=== PATIENT | male | born 1980 | race Caucasian/White ===

== ENCOUNTER 2018-06-04 14:16 | Outpatient (REF) | payer MEDICARE, MEDICAID, SELFPAY ==
[2018-06-04 21:42] LABS: ALT 43 U/L (12-78); AST 31 U/L (15-37); Albumin 3.9 g/dL (3.4-5.0); Alkaline Phosphatase 62 U/L (46-116); Anion Gap 9.5 mmol/L (3-11); BUN 12 mg/dL (7-18); Bilirubin, Total 0.4 mg/dL (0.2-1.0); CO2 33.5 mmol/L (21.0-32.0); CREATININE 1.09 mg/dL (0.70-1.30); Calcium 9.2 mg/dL (8.5-10.1); Chloride 98 mmol/L (98-107); Glucose 133 mg/dL (70-100); Potassium 3.6 mmol/L (3.5-5.1); Sodium 141 mmol/L (136-145); Total Protein 7.5 g/dL (6.4-8.2)
[2018-06-04 22:48] LABS: COMMENT (LAB VIEW ONLY) 30.57 mg/dL; Microalb ug/mg Crea 602.2 ug/mg Cr
== END 2018-06-04 14:36 ==
LOC: NCHCN 14:16
PROVIDERS: PCP Nurse Practitioner Family; Visit Provider Nurse Practitioner Family
DX: I10 Essential (primary) hypertension (principal); E11.9 Type 2 diabetes mellitus without complications
CPT/HCPCS: 80053; 82043; 82570

== ENCOUNTER 2018-11-16 12:48 | Outpatient (REF) | payer MEDICARE, MEDICAID, SELFPAY ==
[2018-11-16 22:40] LABS: Cholesterol 67 mg/dL (50-200); HDL Cholesterol 26 mg/dL (40-60); LDL CHOLESTEROL 18 mg/dL (<100); Triglyceride 236 mg/dL (30-150)
== END 2018-11-16 13:08 ==
LOC: NCHCN 12:48
PROVIDERS: PCP Nurse Practitioner Family; Visit Provider Registered Nurse
DX: E66.9 Obesity, unspecified (principal)
CPT/HCPCS: 80061; 83721

== ENCOUNTER 2019-02-17 15:27 | Outpatient (REF) | payer MEDICARE, MEDICAID, SELFPAY ==
[2019-02-17 21:26] LABS: HCT 41.9 % (40.0-50.0); HGB 13.8 g/dL (13.5-17.5)
== END 2019-02-17 15:47 ==
LOC: NCHCN 15:27
PROVIDERS: PCP Nurse Practitioner Family; Visit Provider Registered Nurse
DX: E11.9 Type 2 diabetes mellitus without complications (principal); D64.9 Anemia, unspecified
CPT/HCPCS: 83036; 85014; 85018

== ENCOUNTER 2019-08-18 15:16 | Outpatient (REF) | payer MEDICARE, MEDICAID, SELFPAY ==
[2019-08-18 21:46] LABS: ALT 45 U/L (16-63); AST 29 U/L (15-37); Albumin 3.8 g/dL (3.4-5.0); Alkaline Phosphatase 60 U/L (46-116); Anion Gap 8.6 mmol/L (3-11); BUN 13 mg/dL (7-18); Bilirubin, Total 0.4 mg/dL (0.2-1.0); CO2 33.4 mmol/L (21.0-32.0); CREATININE 1.22 mg/dL (0.70-1.30); Calcium 9.1 mg/dL (8.5-10.1); Chloride 100 mmol/L (98-107); Glucose 142 mg/dL (74-106); Potassium 3.3 mmol/L (3.5-5.1); Sodium 142 mmol/L (136-145); Total Protein 7.2 g/dL (6.4-8.2)
== END 2019-08-18 15:36 ==
LOC: NCHCN 15:16
PROVIDERS: PCP Nurse Practitioner Family; Visit Provider Registered Nurse
DX: I10 Essential (primary) hypertension (principal); E66.9 Obesity, unspecified
CPT/HCPCS: 80053

== ENCOUNTER 2019-11-09 11:10 | Outpatient (REF) | payer MEDICARE, MEDICAID, SELFPAY ==
[2019-11-09 21:32] LABS: COMMENT (LAB VIEW ONLY) 100.99 mg/dL
[2019-11-09 21:36] LABS: Microalb ug/mg Crea 600.6 ug/mg Cr
== END 2019-11-09 11:30 ==
LOC: NCHCN 11:10
PROVIDERS: PCP Nurse Practitioner Family; Visit Provider Registered Nurse
DX: E11.9 Type 2 diabetes mellitus without complications (principal)
CPT/HCPCS: 82043; 82570

== ENCOUNTER 2019-11-25 20:21 | Outpatient (REF) | payer MEDICARE, MEDICAID, SELFPAY ==
[2019-11-25 21:07] LABS: BUN 13 mg/dL (7-18); CREATININE 1.14 mg/dL (0.70-1.30); Calcium 9.3 mg/dL (8.5-10.1); Chloride 99 mmol/L (98-107); Glucose 274 mg/dL (74-106); Potassium 3.3 mmol/L (3.5-5.1); Sodium 136 mmol/L (136-145)
== END 2019-11-25 20:41 ==
LOC: NCHCN 20:21
PROVIDERS: PCP Nurse Practitioner Family; Visit Provider Registered Nurse
DX: I10 Essential (primary) hypertension (principal); E66.9 Obesity, unspecified
CPT/HCPCS: 80048

== ENCOUNTER 2020-01-05 10:12 | Outpatient (REF) | payer MEDICARE, MEDICAID, SELFPAY ==
[2020-01-05 21:48] LABS: BUN 15 mg/dL (7-18); CREATININE 1.26 mg/dL (0.70-1.30); Calcium 9.8 mg/dL (8.5-10.1); Chloride 98 mmol/L (98-107); Glucose 263 mg/dL (74-106); Potassium 3.3 mmol/L (3.5-5.1); Sodium 140 mmol/L (136-145)
== END 2020-01-05 10:32 ==
LOC: NCHCN 10:12
PROVIDERS: PCP Nurse Practitioner Family; Visit Provider Registered Nurse
DX: I10 Essential (primary) hypertension (principal); E66.9 Obesity, unspecified
CPT/HCPCS: 80048

== ENCOUNTER 2020-02-04 20:16 | Outpatient (REF) | payer MEDICARE, MEDICAID, SELFPAY ==
[2020-02-04 20:57] LABS: Potassium 3.5 mmol/L (3.5-5.1)
== END 2020-02-04 20:36 ==
LOC: NCHCN 20:16
PROVIDERS: PCP Nurse Practitioner Family; Visit Provider Registered Nurse
DX: E87.6 Hypokalemia (principal)
CPT/HCPCS: 84132

== ENCOUNTER 2021-01-10 15:11 | Outpatient (REF) | payer MEDICARE, SELFPAY ==
[2021-01-10 21:38] LABS: ALT 49 U/L (16-63); AST 21 U/L (15-37); Albumin 3.9 g/dL (3.4-5.0); Alkaline Phosphatase 59 U/L (46-116); Anion Gap 11.1 mmol/L (3-11); BUN 18 mg/dL (7-18); Bilirubin, Total 0.6 mg/dL (0.2-1.0); CO2 26.9 mmol/L (21.0-32.0); CREATININE 1.3 mg/dL (0.70-1.30); Calcium 9.3 mg/dL (8.5-10.1); Chloride 100 mmol/L (98-107); Glucose 258 mg/dL (74-106); Sodium 138 mmol/L (136-145); Total Protein 7.3 g/dL (6.4-8.2)
[2021-01-10 21:40] LABS: COMMENT (LAB VIEW ONLY) 31.25 mg/dL; Microalb ug/mg Crea 293.4 ug/mg Cr
[2021-01-10 22:14] LABS: Cholesterol 56 mg/dL (<200); HDL Cholesterol 29 mg/dL (40-60); Triglyceride 191 mg/dL (<150)
[2021-01-10 22:30] LABS: LDL CHOLESTEROL 13 mg/dL (<100)
== END 2021-01-10 15:12 | disposition home or self-care (01) ==
LOC: NCHCN 15:11
PROVIDERS: PCP Nurse Practitioner Family; Visit Provider Registered Nurse
DX: E11.9 Type 2 diabetes mellitus without complications (principal); E66.9 Obesity, unspecified; I10 Essential (primary) hypertension
CPT/HCPCS: 80053; 80061; 83721; 82043; 82570

== ENCOUNTER 2021-01-16 17:41 | Outpatient (REF) | payer MEDICARE, MEDICAID, SELFPAY ==
[2021-01-16 13:49] LABS: Potassium 3.7 mmol/L (3.5-5.1)
== END 2021-01-16 17:42 | disposition home or self-care (01) ==
LOC: NCHCN 17:41
PROVIDERS: PCP Nurse Practitioner Family; Visit Provider Registered Nurse
DX: E87.6 Hypokalemia (principal)
CPT/HCPCS: 84132

== ENCOUNTER 2022-01-10 09:34 | Outpatient (REF) | payer MEDICARE, MEDICAID, SELFPAY ==
--- OUTSIDE RECORDS SUMMARY | 2022-01-10 09:39 | XMS_ITS | Clinical Summary ---
:1980 Author Organization [facility] Address [address] [place] [address] Care Team Providers Name Role Phone Jelly Ivy MD Primary Care Provider Allergies Active Allergy Reactions Severity Noted Date Comments Bee Pollens Anaphylaxis 02/24/2013 Delacroix Analogues Other (See Comments) 02/24/2013 To xic level Quetiapine Other (See Comments) 08/10/2013 agitati on Medications Medication Sig Dispensed Refills Start Date End Date Status famotidine (PEPCID) 40 Take 40 mg by 0 Active mg tablet mouth daily as needed. amlodipine (NORVASC) 5 Take 5 mg by 0 Active mg tablet mouth daily. EPINEPHrine (EPIPEN) Inject 0.3 mg 0 Active 0.3 mg/0.3 mL (1:1,000) into the muscle injection once as needed. cloNIDine (CATAPRES) Take 0.1 mg by mouth at bedtime 1-2 tab at hs prn . 0 Active 0.1 mg tablet lisinopril-hydrochlorot Take 1 Tab by 0 Active hiazide (PRINZIDE, mouth daily. ZESTORETIC) 20-25 mg per tablet ondansetron Take 1 Tab by 10 Tab 1 09/06/2013 Act edward (ZOFRAN-ODT) 4 mg mouth every 8 disintegrating tablet hours as needed for Nausea. docusate sodium Take 1 Cap by 10 Cap 1 09/06/2013 Active (COLACE) 100 mg capsule mouth 2 times daily as needed for Constipation. Acetaminophen (TYLENOL) Take 1 Tab by 0 09/06/2013 Active 325 mg tablet mouth 3 times daily as needed for Pain. oxyCODONE (ROXICODONE) Take 1-3 Tabs by 30 Tab 0 09/17/2013 Active 5 mg immediate release mouth every 6 tabletIndications: hours as needed Shoulder pain for Pain. Earliest Fill Date: 09/17/13 Active Problems Problem Noted Date Shoulder stiffness 09/06/2013 Obstructive sleep apnea syndrome 03/19/2013 Rotator cuff tear 05/05/2012 Resolved Problems Problem Noted Date Resolved Date Right shoulder pain 05/05/2012 05/05/2012 Medical History Medical History Date Comments Arthritis Back pain Joint pain High blood pressure Asthma Anxiety Depression Obesity Social History Tobacco Use Types Packs/Day Years Used Date Current Every Day Smoker Alcohol Use Standard Drinks/Week Comments Yes 0 (1 standard drink = 0.6 oz pure alcoho l) Sex Assigned at Date Recorded Not on file Last Filed Vital Signs Vital Sign Reading Time Taken Comments Blood Pressure 126/70 09/06/2013 0900 EDT Pulse 56 03/20/2013 0620 EDT Temperature 36 ??C (96.8 ??F) 09/06/2013 0819 EDT Respiratory Rate 22 09/06/2013 0900 EDT Oxygen Saturation 95% 09/06/2013 0900 EDT Inhaled Oxygen Concentration - - Weight 142 kg (313 lb) 09/17/2013 1235 EDT Height 182.9 cm (6') 09/17/2013 1235 EDT Body Mass Index 42.45 09/17/2013 1235 EDT Plan of Treatment Not on file Advance Directives For more information, please contact: [phone] Documents on File Type Date Recorded Patient Communication Professor Explanati on Advance Directives and Living Will Power of Hydrologic Engineer Latest Code Status on File Code Status Date Activated Date Inactivated Comments Full Code 03/19/2013 20:49 03/20/2013 16:02 Care Teams Heat Transfer Technician Relationship Specialty Start Date End Date Jelly Ivy MD PCP - General 04/29/12 [place] [address]
--- OUTSIDE RECORDS SUMMARY | 2022-01-10 09:39 | XMS_ITS | Encounter Summary ---
:1980 Author Organization [facility] Address [address] [place] [address] Care Team Providers Name Role Phone Jelly Ivy MD Primary Care Provider Reason for Visit Reason Comments Shoulder Pain right Encounter Details Date Type Department Care Team Description 09/17/2013 Post-op Visit [facility] Mark Shoulder pain (Primary Sports Medicine Joaquín Conde MD Dx) Program - [address] CHOU [address] [facility], [place] [id number] Social History Tobacco Use Types Packs/Day Years Used Date Current Every Day Smoker Alcohol Use Standard Drinks/Week Comments Yes 0 (1 standard drink = 0.6 oz pure alcoho l) Sex Assigned at Date Recorded Not on file documented as of this encounter Last Filed Vital Signs Vital Sign Reading Time Taken Comments Blood Pressure - - Pulse - - Temperature - - Respiratory Rate - - Oxygen Saturation - - Inhaled Oxygen Concentration - - Weight 142 kg (313 lb) 09/17/2013 1235 EDT Height 182.9 cm (6') 09/17/2013 1235 EDT Body Mass Index 42.45 09/17/2013 1235 EDT documented in this encounter Ordered Prescriptions Prescription Sig Dispensed Refills Start Date End Date oxyCODONE (ROXICODONE) 5 Take 1-3 Tabs by 30 Tab 0 09/17 mg immediate release mouth every 6 hours tabletIndications: as needed for Pain. Shoulder pain Earliest Fill Date: 09/17/13 documented in this encounter Progress Notes Joaquín Flores MD - 09/17/2013 1328 EDT Slade is a postop patient to see me. He had a rotator cuff repair in the fall of 2013 and had a manipulation under anesthesia. He had near full motion on the manipulation and is doing better. He feels less pain and better motion. He continues to have significant pain affecting his weakness when he starts getting up to about 70 degrees of forward flexion. I called and talked to his physical therapist today, and she states he has been mildly motivated, does not do his home exercise program. She talks to him about doing his program, and he clearly states that he is just not able to do it. He does come with therapy intermittently. I went back and talked to Slade after the phone conversation with his therapist Jana, and he says he is going to work a little bit harder on it. I did explain to him that he is going really compromise his result if he does not really continue to work on his exercise program. On exam today, he has got forward flexion to about 140, abduction to about 90, internal rotation across chest, external rotation to 45 degrees. He has got excellent internal and external rotation at his side, and he has got a weak supraspinatus. He uses a lot of scapular abduction to help in that position. PLAN: Continue with his exercise program. I have encouraged him to really work hard, and he is goingto try. I will see him in 6 weeks. If he does not continue to get better, we would potentially consider an MRI to revaluate his cuff, but at this point in time, his pain is under better management. We are going to give him 1 last order of oxycodone. documented in this encounter Plan of Treatment Not on filedocumented as of this encounter Visit Diagnoses Diagnosis Shoulder pain - Primary Pain in joint, shoulder region documented in this encounter Discontinued Medications Medication Sig Discontinue Reason Start Date End Date oxyCODONE (ROXICODONE) 5 Take 1-3 Tabs by Reorder 09/06/2013 09/17/2013 mg immediate release mouth every 4 hours tablet as needed for Pain. documented as of this encounter Care Teams Refractory Technician Relationship Specialty Start Date End Date Jelly Ivy MD PCP - General 04/29/12 [place] [address] documented as of this encounter
--- OUTSIDE RECORDS SUMMARY | 2022-01-10 09:39 | XMS_ITS | Encounter Summary ---
:1980 Author Organization [facility] Address [address] [place] [address] Care Team Providers Name Role Phone Jelly Ivy MD Primary Care Provider Reason for Visit Reason Onset Date Comments Orders (Non Pre-visit) 11/12/2013 Encounter Details Date Type Department Care Team Description 11/12/2013 Orders Only [facility] Gokul Roman, GIANFRANCO Shoul nena pain (Primary Sports Medicine Program Dx) - [address]ody Jeff[address] [place], [place] [address] Social History Tobacco Use Types Packs/Day Years Used Date Current Every Day Smoker Alcohol Use Standard Drinks/Week Comments Yes 0 (1 standard drink = 0.6 oz pure alcoho l) Sex Assigned at Date Recorded Not on file documented as of this encounter Plan of Treatment Not on filedocumented as of this encounter Procedures Procedure Name Priority Date/Time Associated Diagnosis Comme nts MR EXTREMITY 12/05/2013 9:17 EDT Results for this SHOULDER WO procedure are i n CONTRAST the results section. documented in this encounter Results MR EXTREMITY SHOULDER WO CONTRAST (12/05/2013 9:17 EDT) Anatomical Region Laterality Modality Other Specimen Narrative MR ROOM 1 [facility] - 12/08/2013 17:38 EDT MR EXTREMITY RIGHT SHOULDER WO CONTRAST ??12/05/2013 9:17 AM Signs and Symptoms/Comments: ??719.41-Pa in in joint, shoulder [id number]-CM; Right shoulder pain / l oss of strength Comparison: Outside MRI April 02, 2012 Technique: Noncontrast, multiplanar MR i maging of the right shoulder with 6 sequences obtained on the [employer] MR I system. A 12 cm imaging uaemt-fs-poyd was utilized. MR technolog ist reports that the patient has diminished mental capacity and there is patient motion artifact despite utilizing fast scan techniques. It is possible that pathology may be missed or misinterpreted. In spit e of this however some useful observations can still be made. Findings: There is been prior tendon to bone repai r of the supraspinatus tendon. The repaired supraspinatus tendo n is grossly intact, although the distal fibers of the supraspinatus t endon are appear moderately thinned, a finding that can represent po stsurgical changes and/or partial tearing. This finding is on a ba ckground of tendinosis. There is moderate tendinosis of the infraspina tus and subscapularis tendons without discrete tearing. The teres argenis r tendon is intact. There is mild atrophy of the supraspinatus and in fraspinatus muscles. There is mild tendinosis of the intra-ar ticular portion of long head of the biceps tendon. There is no discrete labral tear visuali zed. There are mild glenohumeral degenerative changes. There are postsurgical changes from prio r subacromial decompression. There is severe acromioclavicular osteoa rthrosis with inferior pointing acromioclavicular osteophytes w hich encroach on the subacromial space. There is also mild to moderate fluid distention in the expected location of the subacromial subdeltoid bursal space. Impression: 1. Prior tendon to bone repair of the mendez praspinatus tendon. The repaired tendon is grossly intact, altho ugh the distal fibers are thinned, a finding that could represent either postsurgical changes and/or partial tearing. 2. Moderate tendinosis of the infraspina tus and subscapularis tendons without discrete tearing. 3. Mild atrophy of the supraspinatus and infraspinatus muscles. 4. Mild tendinosis of the intra-articula r portion of long head of the biceps tendon. 5. Postsurgical changes from prior subac romial decompression. 6. Severe acromioclavicular osteoarthros is. 7. Inferior pointing acromioclavicular o steophytes noted. Correlate for any recurrent or ongoing symptoms of the clinical entity of external subacromial impingement. Also w ith mild to moderate fluid distention in the expected location of t he subacromial subdeltoid bursal space, findings that can be posts urgical and/or reflect bursitis. 8. Patient motion artifact compromises o verall assessment despite repeat attempts at imaging and utilizing fast scan techniques. . I have personally reviewed the images an d the above interpretation and agree with the findings. Procedure Note 12/08/2013 MR EXTREMITY RIGHT SHOULDER WO CONTRAST 12/05/2013 9:17 AM Signs and Symptoms/Comments: 719.41-Pain in joint, shoulder [id number]-CGA-0-CM; Right shoulder pain / l oss of strength Comparison: Outside MRI April 02, 2012 Technique: Noncontrast, multiplanar MR i maging of the right shoulder with 6 sequences obtained on the open MR I system. A 12 cm imaging oryow-tq-kgoc was utilized. MR technolog ist reports that the patient has diminished mental capacity and there is patient motion artifact despite utilizing fast scan techniques. It is possible that pathology may be missed or misinterpreted. In spit e of this however some useful observations can still be made. Findings: There is been prior tendon to bone repai r of the supraspinatus tendon. The repaired supraspinatus tendo n is grossly intact, although the distal fibers of the supraspinatus t endon are appear moderately thinned, a finding that can represent po stsurgical changes and/or partial tearing. This finding is on a ba ckground of tendinosis. There is moderate tendinosis of the infraspina tus and subscapularis tendons without discrete tearing. The teres argenis r tendon is intact. There is mild atrophy of the supraspinatus and in fraspinatus muscles. There is mild tendinosis of the intra-ar ticular portion of long head of the biceps tendon. There is no discrete labral tear visuali zed. There are mild glenohumeral degenerative changes. There are postsurgical changes from prio r subacromial decompression. There is severe acromioclavicular osteoa rthrosis with inferior pointing acromioclavicular osteophytes w hich encroach on the subacromial space. There is also mild to moderate fluid distention in the expected location of the subacromial subdeltoid bursal space. Impression: 1. Prior tendon to bone repair of the mendez praspinatus tendon. The repaired tendon is grossly intact, altho ugh the distal fibers are thinned, a finding that could represent either postsurgical changes and/or partial tearing. 2. Moderate tendinosis of the infraspina tus and subscapularis tendons without discrete tearing. 3. Mild atrophy of the supraspinatus and infraspinatus muscles. 4. Mild tendinosis of the intra-articula r portion of long head of the biceps tendon. 5. Postsurgical changes from prior subac romial decompression. 6. Severe acromioclavicular osteoarthros is. 7. Inferior pointing acromioclavicular o steophytes noted. Correlate for any recurrent or ongoing symptoms of the clinical entity of external subacromial impingement. Also w ith mild to moderate fluid distention in the expected location of t he subacromial subdeltoid bursal space, findings that can be posts urgical and/or reflect bursitis. 8. Patient motion artifact compromises o verall assessment despite repeat attempts at imaging and utilizing fast scan techniques. . I have personally reviewed the images an d the above interpretation and agree with the findings. Performing Organization Address City/State/ZIP Code Phon e Number [facility] MR ROOM 1 [facility] documented in this encounter Visit Diagnoses Diagnosis Shoulder pain - Primary Pain in joint, shoulder region documented in this encounter Care Teams X Ray Inspector Relationship Specialty Start Date End Date Jelly Ivy MD PCP - General 04/29/[address] [address] documented as of this encounter
--- OUTSIDE RECORDS SUMMARY | 2022-01-10 09:39 | XMS_ITS | Encounter Summary ---
:1980 Author Organization [facility] Address [address] [place] [address] Care Team Providers Name Role Phone Jelly Ivy MD Primary Care Provider Reason for Visit Reason Comments Other Preop call Encounter Details Date Type Department Care Team Description 09/03/2013 Telephone [facility] Tonny Chand LPN Other (Preop call) Sports Medicine Program [address] [place], [place] [id number] [place] [address] Dr Jeff[address] [place] [phone] Social History Tobacco Use Types Packs/Day Years Used Date Current Every Day Smoker Alcohol Use Standard Drinks/Week Comments Yes 0 (1 standard drink = 0.6 oz pure alcoho l) Sex Assigned at Date Recorded Not on file documented as of this encounter Miscellaneous Notes Telephone Encounter - Ninoska Chand - 09/03/2013 1200 EST Patients legal guardian, his Dad Slade, was contacted w/ preop information on home phone. He was told to arrive @ 0600 on 09/06/13 @ [facility], nothing to eat or drink after midnight, to shower the night before and morning of surgery with an antibacterial soap, to wear appropriate attire (baggy, loose fitting, etc) and to leave all valuables at home. He was told to follow instructions as noted on their sheet What to expect as an outpatient patient. Post op visit is 09/17@1245. He verbalized understanding. documented in this encounter Plan of Treatment Not on filedocumented as of this encounter Visit Diagnoses Not on filedocumented in this encounter Care Teams Shale Miner Blasting Relationship Specialty Start Date End Date Jelly Ivy MD PCP - General 04/29/[address] [address] documented as of this encounter
--- OUTSIDE RECORDS SUMMARY | 2022-01-10 09:39 | XMS_ITS | Encounter Summary ---
:1980 Author Organization [facility] Address [address] [place] [address] Care Team Providers Name Role Phone Jelly Ivy MD Primary Care Provider Reason for Visit Reason Onset Date Comments Follow-up 05/03/2013 Encounter Details Date Type Department Care Team Description 05/03/2013 Telephone [facility] Sports Medicine Gokul Roman, RN Follow-up Program - Rodyirma Jeffries [place], [place] [address] Social History Tobacco Use Types Packs/Day Years Used Date Current Every Day Smoker Alcohol Use Standard Drinks/Week Comments Yes 0 (1 standard drink = 0.6 oz pure alcoho l) Sex Assigned at Date Recorded Not on file documented as of this encounter Miscellaneous Notes Telephone Encounter - Gokul Roman, RN - 05/03/2013 0963 EST Patient called in with pain following PT. He is no longer using cryo cuff. I explained to him the importance of icing following activity, and to take an antiinflammatory as needed. He is following up with Dr. Flores tomorrow morning at 0945. He expressed understanding. Gokul Roman RN 05/03/2013 9:37 documented in this encounter Plan of Treatment Not on filedocumented as of this encounter Visit Diagnoses Not on filedocumented in this encounter Care Teams Nurse Transplant Relationship Specialty Start Date End Date Jelly Ivy MD PCP - General 04/29/[address] [address] documented as of this encounter
--- OUTSIDE RECORDS SUMMARY | 2022-01-10 09:39 | XMS_ITS | Encounter Summary ---
:[address] [facility] Address [address] [place] [address] Care Team Providers Name Role Phone Jelly Ivy MD Primary Care Provider Encounter Details Date Type Department Care Team Description 12/05/2013 Hospital Encounter [facility] - Keesha Flores [facility] MD [place] [address] [facility] [address] [place] [address] [place] [address] [place] [address] Social History Tobacco Use Types Packs/Day Years Used Date Current Every Day Smoker Alcohol Use Standard Drinks/Week Comments Yes 0 (1 standard drink = 0.6 oz pure alcoho l) Sex Assigned at Date Recorded Not on file documented as of this encounter Discharge Diagnoses Diagnosis V72.5 RADIOLOGICAL EXAM NEC[ICD-9-CM] documented in this encounter Medications at Time of Discharge Medication Sig Dispensed Refills Start Date End Date Acetaminophen (TYLENOL) 325 Take 1 Tab by mouth 0 09/06/2013 mg tablet 3 times daily as needed for Pain. amlodipine (NORVASC) 5 mg Take 5 mg by mouth 0 tablet daily. cloNIDine (CATAPRES) 0.1 mg Take 0.1 mg by mouth at bedtime 1-2 tab at hs prn. 0 tablet docusate sodium (COLACE) Take 1 Cap by mouth 10 Cap 1 100 mg capsule 2 times daily as needed for Constipation. EPINEPHrine (EPIPEN) 0.3 Inject 0.3 mg into 0 mg/0.3 mL (1:1,000) the muscle once as injection needed. famotidine (PEPCID) 40 mg Take 40 mg by mouth 0 tablet daily as needed. lisinopril-hydrochlorothiaz Take 1 Tab by mouth 0 juju (PRINZIDE, ZESTORETIC) daily. 20-25 mg per tablet ondansetron (ZOFRAN-ODT) 4 Take 1 Tab by mouth 10 Tab 1 09/06/2013 mg disintegrating tablet every 8 hours as needed for Nausea. oxyCODONE (ROXICODONE) 5 mg Take 1-3 Tabs by 30 Tab 0 immediate release mouth every 6 hours tabletIndications: Shoulder as needed for Pain. pain Earliest Fill Date: 09/17/13 documented as of this encounter Discharge Disposition Disposition Code Departure Means Destination Home or Self [facility] documented in this encounter Plan of Treatment Not on filedocumented as of this encounter Visit Diagnoses Not on filedocumented in this encounter Care Teams Home Economics Expert Relationship Specialty Start Date End Date Jelly Ivy MD PCP - General 04/29/12 [facility] MEDICINE [address] [address] documented as of this encounter
--- OUTSIDE RECORDS SUMMARY | 2022-01-10 09:39 | XMS_ITS | Encounter Summary ---
:1980 Author Organization [facility] Address [address] [place] [address] Care Team Providers Name Role Phone Jelly Ivy MD Primary Care Provider Reason for Visit Reason Onset Date Comments Follow-up 11/12/2013 Encounter Details Date Type Department Care Team Description 11/12/2013 Telephone [facility] Sports Medicine Gokul Roman RN Follow-up Program - Rody Jeffries [place], [place] [address] Social History Tobacco Use Types Packs/Day Years Used Date Current Every Day Smoker Alcohol Use Standard Drinks/Week Comments Yes 0 (1 standard drink = 0.6 oz pure alcoho l) Sex Assigned at Date Recorded Not on file documented as of this encounter Miscellaneous Notes Telephone Encounter - Gokul Roman RN - 11/12/2013 9972 EDT Spoke to patient's caregiver after speaking to patient's physical therapist, Jana [phone]. Patient has very little strength in his operative shoulder. We discussed possibly scheduling another MRI, and having patient come back in to see Dr. Flores. They verbalized understanding. Patient wasinstructed to call Dr. Flores's office at [phone] with any questions or concerns. We will attempt to order MRI based on the symptoms of loss of strength on abduction to evaluate RTC repair. Gokul Roman RN 11/12/2013 14:47 documented in this encounter Plan of Treatment Not on filedocumented as of this encounter Visit Diagnoses Not on filedocumented in this encounter Care Teams Labor Standards Director Relationship Specialty Start Date End Date Jelly Ivy MD PCP - General 04/29/[address] [address] documented as of this encounter
--- OUTSIDE RECORDS SUMMARY | 2022-01-10 09:39 | XMS_ITS | Encounter Summary ---
:1980 Author Organization [facility] Address [address] [place] [address] Care Team Providers Name Role Phone Jelly Ivy MD Primary Care Provider Reason for Visit Reason Onset Date Comments Medications Refill 04/14/2013 Encounter Details Date Type Department Care Team Description 04/14/2013 Refill [facility] Gokul Don R N Medications Refill Medicine Program - Kavitha Jeffries [place], [place] [address] Social History Tobacco Use Types Packs/Day Years Used Date Current Every Day Smoker Alcohol Use Standard Drinks/Week Comments Yes 0 (1 standard drink = 0.6 oz pure alcoho l) Sex Assigned at Date Recorded Not on file documented as of this encounter Ordered Prescriptions Prescription Sig Dispensed Refills Start Date End Date HYDROcodone-acetaminophen Take 1 Tab by mouth 40 Tab 0 1 05/04/2013 (LORTAB) 5-500 mg every 4 hours as tabletIndications: Rotator needed for Pain. cuff (capsule) sprain documented in this encounter Miscellaneous Notes Telephone Encounter - Gokul Roman RN - 04/14/2013 1212 EDT Patient continues to have pain with sleeping. He continues to use cryo cuff and elevating along withresting inbetween rehab. He was instructed to picker packer prescription at his pharmacy for Lortab and to take as directed. Gokul Roman RN 04/14/2013 12:13 documented in this encounter Plan of Treatment Not on filedocumented as of this encounter Visit Diagnoses Diagnosis Rotator cuff (capsule) sprain - Primary documented in this encounter Discontinued Medications Medication Sig Discontinue Reason Start Date End Date HYDROcodone-acetaminophe Take 1 Tab by mouth Reorder 3 04/14/2013 n (LORTAB) 5-500 mg every 4 hours as tabletIndications: needed for Pain. Rotator cuff (capsule) sprain documented as of this encounter Care Teams Technical Document Writer Relationship Specialty Start Date End Date Jelly Ivy MD PCP - General 04/29/[address] [address] documented as of this encounter
--- OUTSIDE RECORDS SUMMARY | 2022-01-10 09:39 | XMS_ITS | Encounter Summary ---
:1980 Author Organization [facility] Address [address] [place] [address] Care Team Providers Name Role Phone Jelly Ivy MD Primary Care Provider Reason for Referral Consult, Test and Treat (Routine/Next Available) - Closed Specialty Diagnoses / Procedures Referred By Contact Refer red To Contact Rehab Therapies Diagnoses Shoulder stiffness Rotator cuff tear Guillermina Coleman PA-C [address] [place] [address] [place] [address] Referral ID Status Reason Start Date Expiration Date Visits V isits Requested Authorized [id number] Closed Specialty 09/06/2013 1 1 Services Required Question Answer Reason for Request: s/p manipulation for frozen shoulder Comments Please Assist with ROM. May benefit from Home Exercise ROM program. Start PT 3 Change band aide prn Encounter Details Date Type Department Care Team Description 09/06/2013 Hospital Encounter [facility] Daphne Flores stiffness (Primary Dx); Perioperative Services Joaquín Conde MD Rotator cuff tear - [facility] [address] [facility] [address] [facility] [address] [place] [address] [place], [place] [phone] Social History Tobacco Use Types Packs/Day Years Used Date Current Every Day Smoker Alcohol Use Standard Drinks/Week Comments Yes 0 (1 standard drink = 0.6 oz pure alcoho l) Sex Assigned at Date Recorded Not on file documented as of this encounter Last Filed Vital Signs Vital Sign Reading Time Taken Comments Blood Pressure 126/70 09/06/2013 0900 EDT Pulse - - Temperature 36 ??C (96.8 ??F) 09/06/2013 0819 EDT Respiratory Rate 22 09/06/2013 0900 EDT Oxygen Saturation 95% 09/06/2013 0900 EDT Inhaled Oxygen Concentration - - Weight 142 kg (313 lb) 08/30/2013 0842 EST Height 182.9 cm (6') 08/30/2013 0842 EST Body Mass Index 42.45 08/30/2013 0842 EST documented in this encounter Discharge Instructions Guillermina Camilo PA - 09/06/2013 Dr. Flores [phone] OUTPATIENT SURGERY Shoulder manipulation under anesthesia BANDAGE Keep your band aide on for 24 hrs, then as needed. SHOWERS You may shower starting tomorrow morning ICE PACK Use as needed. PHYSICAL Physical Therapy will be started 1-2days after your surgery. This should be THERAPY arranged prior to your surgery. It is important for you to work on range of motion MEDICATIONS You will be given prescriptions for pain medication. ACTIVITIES Begin range of motion exercises as soon as possible. INFECTION If pain becomes severe, if you develop chills / fever, have discolored drainage from your incisions or develop calf pain / tenderness, please call our office immediately. CALL IF YOU HAVE ANY QUESTIONS OR PROBLEMS [phone] documented in this encounter Medications at Time of Discharge Medication Sig Dispensed Refills Start Date End Date Acetaminophen (TYLENOL) Take 1 Tab by mouth 0 03/2014 325 mg tablet 3 times daily as needed for Pain. amlodipine (NORVASC) 5 mg Take 5 mg by mouth 0 tablet daily. cloNIDine (CATAPRES) 0.1 Take 0.1 mg by mouth at bedtime 1-2 tab at h s prn. 0 mg tablet docusate sodium (COLACE) Take 1 Cap by mouth 10 Cap 1 100 mg capsule 2 times daily as needed for Constipation. EPINEPHrine (EPIPEN) 0.3 Inject 0.3 mg into 0 mg/0.3 mL (1:1,000) the muscle once as injection needed. famotidine (PEPCID) 40 mg Take 40 mg by mouth 0 tablet daily as needed. lisinopril-hydrochlorothi Take 1 Tab by mouth 0 azide (PRINZIDE, daily. ZESTORETIC) 20-25 mg per tablet ondansetron (ZOFRAN-ODT) Take 1 Tab by mouth 10 Tab 1 4 mg disintegrating every 8 hours as tablet needed for Nausea. naproxen (NAPROSYN) 500 Take 1 Tab by mouth 6 Tab 0 03/201409/09/2013 mg tablet 2 times daily with breakfast and dinner for 3 days. oxyCODONE (ROXICODONE) 5 Take 1-3 Tabs by 50 Tab 0 09/0609/17/2013 mg immediate release mouth every 4 hours tablet as needed for Pain. documented as of this encounter Ordered Prescriptions Prescription Sig Dispensed Refills Start Date End Date Acetaminophen (TYLENOL) Take 1 Tab by mouth 0 03/2014 325 mg tablet 3 times daily as needed for Pain. docusate sodium (COLACE) Take 1 Cap by mouth 10 Cap 1 100 mg capsule 2 times daily as needed for Constipation. ondansetron (ZOFRAN-ODT) Take 1 Tab by mouth 10 Tab 1 4 mg disintegrating every 8 hours as tablet needed for Nausea. morphine (MS CONTIN) 15 Take 1 Tab by mouth 6 Tab 0 03/201409/06/2013 mg CR tablet every 12 hours for 3 days. naproxen (NAPROSYN) 500 Take 1 Tab by mouth 6 Tab 0 03/201409/09/2013 mg tablet 2 times daily with breakfast and dinner for 3 days. oxyCODONE (ROXICODONE) 5 Take 1-3 Tabs by 50 Tab 0 09/0609/17/2013 mg immediate release mouth every 4 hours tablet as needed for Pain. documented in this encounter Discharge Disposition Disposition Code Departure Means Destination Home or Self Care documented in this encounter Progress Notes Marianna White RN - 08/30/2013 0841 EST Slade Anderson III has been instructed as follows regarding medication administration for the day of the scheduled procedure. Date of Surgery: 09/06/13 Instructions for Taking Medications Day of Surgery Medication Last Dose Hold DOS Take DOS amlodipine (NORVASC) 5 mg tablet Yes cloNIDine (CATAPRES) 0.1 mg tablet Yes prn EPINEPHrine (EPIPEN) 0.3 mg/0.3 mL (1:1,000) injection Yes prnyes prn famotidine (PEPCID) 40 mg tablet HYDROcodone-acetaminophen (NORCO) 7.5-325 mg per tablet Yes lisinopril-hydrochlorothiazide (PRINZIDE, ZESTORETIC) 20-25 mg per tablet Yes Adriane Benitez RN - 08/10/2013 0815 EST Slade Anderson III has been instructed as follows regarding medication administration for the day of the scheduled procedure. Date of Surgery: 08/16/13 Instructions for Taking Medications Day of Surgery Medication Last Dose Hold DOS Take DOS amlodipine (NORVASC) 5 mg tablet Yes cloNIDine (CATAPRES) 0.1 mg tablet @hs EPINEPHrine (EPIPEN) 0.3 mg/0.3 mL (1:1,000) injection Yes prn famotidine (PEPCID) 40 mg tablet HYDROcodone-acetaminophen (NORCO) 7.5-325 mg per tablet Yes prn lisinopril-hydrochlorothiazide (PRINZIDE, ZESTORETIC) 20-25 mg per tablet Yes Other medication instructions: Other medication instruction given: hold NSAID's and supplements 7 days prior to surgery documented in this encounter H&P Notes AUTO WASHER, SCAN 2 - 09/10/2013 1123 EDT Joaquín Cheney MD - 09/06/2013 0724 EDT The preoperative history and physical which was performed within 30 days of this procedure has been reviewed and the clinically appropriate elements of the physical examination havebeen repeated. There are no changes to the documented history and physical or if so such changes aredocumented below Joaquín Flores MD 09/06/2013 7:24 documented in this encounter Nursing Notes AUTO WASHER, SCAN 2 - 09/10/2013 1123 EDT documented in this encounter OR Notes OR PreOp - AUTO WASHER, SCAN 2 - 09/10/2013 1123 EDT R Surgeon - Joaquín Flores MD - 09/06/2013 1045 EDT OPERATIVE REPORT SERVICE DATE: 09/06/2013 SURGEON: Joaquín Flores MD FITNESS SALES CONSULTANT: No resident surgeon available due to duty hour restrictions. Quality Improvement Engineer, LAUREN Lauren, assisted in all aspects of the surgical procedure. The patient was morbidly obese and I needed assistance in placing on the table, positioning and assistance in the manipulation due patient's size. PREOPERATIVE DIAGNOSIS: Right shoulder frozen shoulder. POSTOPERATIVE DIAGNOSIS: Right shoulder frozen shoulder. PROCEDURE: Right shoulder manipulation under anesthesia and injection within the subacromial space with Marcaine and Depo 40 mg in 1 mL and 1 mL was given. COMPLICATIONS: None. SPECIMENS: None. IMPLANTS: None. DRAINS: None. NARRATIVE: The patient was taken to the operating room, laid supine, successful general anesthesia was performed. The right shoulder was examined, the skin was intact. The motion was limited on the right side. There was 20 degrees of abduction external rotation, 90 degrees of forward flexion, 90 degrees of abduction. In the left shoulder there was 40 degrees of abduction external rotation, 160 of forward flexion, 160 of abduction. Following this, he was positioned on the OR table and Ayden helped position the body, I helped hold the shoulder. She helped utilize the other shoulder to help demonstratethe full range of motion. We gently pushed in forward flexion and were able to get, just gently pushing through, a small pop, small other couple areas of very small minor pops. Went into full extensionstraight over the head to 160 over about a 2 to 3 minute period of time. In abduction, external rotation we then were able to go from 20 to about 40 to 50 degrees without too much difficulty. Internal r otation across the chest, abduction, external rotation, then went up to 160 slowly over a couple of minutes. We repeated this several times, the motion appeared to be very fluid. There were no large pops or snaps of any consideration. We then prepped the lateral aspect of the shoulder with 3 alcohol preps and then after this 28 mL of 1% Marcaine with epi and 2 mL of Depo-Medrol were given to the patient. He tolerated the procedure very well and then ice packs were placed on the shoulder. Dressing was placed over the bandage site. He was taken out of the operating room in stable condition. Unless otherwise noted, there were no complications, no blood loss, no cultures obtained, no specimens removed, and no drains retained. Joaquín Flores MD 08 18 AM / Joaquín Flores MD mn Confirmation: [id number] Dictation ID: [id number] Anesthesia Procedure Notes - AUTO WASHER, SCAN 2 - 09/06/2013 0825 EDT R PreOp - AUTO WASHER, SCAN 2 - 09/06/2013 0822 EDT nesthesia Preprocedure Evaluation - AUTO WASHER, SCAN 2 - 09/06/2013 0816 EDT documented in this encounter Miscellaneous Notes Anesthesia Post-Eval - ToDakota wills - 09/06/2013 0834 EDT Post Anesthesia Evaluation Note Date of Service: 09/06/2013 Slade Anderson III, a 33 y.o. year old male has received General Anesthesia today. He has been evaluated, assessed and discharged from anesthesia care with stable cardiorespiratory function and alertmental status. The last set of recorded vital signs and pain rating were reviewed: Temp: 36 ??C (96.8 ??F) (09/06/13818), Heart Rate: 91 BPM (09/06/13818), BP: 120/97 mmHg (09/06/13818), Resp: 15 (09/06/13818), SpO2: 99 % (09/06/13818),Numeric Pain Level (Scale 1-10): 0 Slade Anderson III participated in this evaluation unless otherwise noted. His pain, nausea and vomiting have been managed and his body temperature and fluid balance have been restored. Additional monitoring and assessment needs have been addressed. If present, any postoperative events are documented below. Dakota Salazar MD 09/06/2013 8:34 documented in this encounter Plan of Treatment Scheduled Referrals Name Type Priority Associated Diagnoses Order S chedule AMB CONSULT Outpatient Referral Routine Shoulder sti ffness Ordered: PHYSICAL THERAPY Rotator cuff tear 2013 documented as of this encounter Procedures Procedure Name Priority Date/Time Associated Diagnosis Comme nts ECG REPORT - SCANNED 09/10/2013 11:23 EDT documented in this encounter Visit Diagnoses Diagnosis Shoulder stiffness - Primary Stiffness of joint, not elsewhere classi fied, shoulder region Rotator cuff tear Rotator cuff (capsule) sprain documented in this encounter Administered Medications Inactive Administered Medications - up to 3 most recent administrations Medication Order MAR Action Action Date Dose Rate Site acetaminophen (TYLENOL) tablet Given 09/06/2013 7:14 EDT 1,000 m g 1,000 mg 1,000 mg, oral, PRE-OP ONCE, 1 dose, On Fri09/06/13 at 0730, Routine, Pre-Op DOS Rx Approved lactated ringers (LR) infusion New Bag 09/06/2013 7:10 EDT 25 mL/hr at 25 mL/hr, intravenous, CONTINUOUS, Starting on Fri09/06/13 at 0730, Until Fri09/06/13 at 1145, Routine, Pre-Op DOS Rx Approved naproxen (NAPROSYN) tablet 500 mg Given 09/06/2013 7:14 EDT 500 mg 500 mg, oral, PRE-OP ONCE, 1 dose, On Fri09/06/13 at 0730, Routine, Pre-Op DOS Rx Approved oxyCODONE (OXYCONTIN) CR tablet 10 mg Given 09/06/2013 7:14 EDT 10 mg 10 mg, oral, PRE-OP ONCE, 1 dose, On 09/06/13 at 0730, Routine, Pre-Op DOS Rx Approved pregabalin (LYRICA) capsule 100 mg Given 09/06/2013 7:15 EDT 100 mg 100 mg, oral, PRE-OP ONCE, 1 dose, On 09/06/13 at 0730, Routine, Pre-Op DOS Rx Approved documented in this encounter Discontinued Medications Medication Sig Discontinue Reason Start Date End Date melatonin 3 mg tablet Take 1 Tab by Patient Stopped Taking 08/10/2013 mouth daily. At dinner time MULTIVITAMIN (MULTI-DAY Take by mouth Error 04/2014 ORAL) daily. UNABLE TO FIND Take 1 Tab by Error 08/10/2013 mouth. Calcium: ? dosage promethazine (PHENERGAN) Take 1 Tab by Therapy completed 03/20/2013 08/10/2013 12.5 mg tablet mouth every 6 hours as needed for Nausea. oxyCODONE (ROXICODONE) 5 Take 1-3 Tabs by Therapy completed 013 08/10/2013 mg immediate release mouth every 4 tablet hours as needed for Pain. methocarbamol (ROBAXIN) Take 1-2 Tabs by Therapy completed 03/20/20 13 08/10/2013 500 mg tablet mouth every 6 hours as needed (muscle spasms). HYDROcodone-acetaminophe Take 1 Tab by Therapy completed 05/04/2013 08/10/2013 n (LORTAB) 5-500 mg mouth every 4 tabletIndications: hours as needed Rotator cuff (capsule) for Pain. sprain meloxicam (MOBIC) 7.5 mg Take 1 Tab by Patient Stopped Taking 05/0408/10/2013 tabletIndications: mouth daily. Rotator cuff (capsule) sprain HYDROcodone-acetaminophe Take 1 Tab by Error n (NORCO) 7.5-325 mg per mouth every 4 tablet hours as needed for Pain. morphine (MS CONTIN) 15 Take 1 Tab by 09/06/201303/2014 mg CR tablet mouth every 12 hours for 3 days. documented as of this encounter Historical Medications This list may reflect changes made after this encounter. Medication Sig Dispensed Refills Start Date End Date HYDROcodone-acetaminophen Take 1 Tab by mouth 0 09/06/2013 (NORCO) 7.5-325 mg per every 4 hours as tablet needed for Pain. added in this encounter Active and Recently Administered Medications Due to Daylight Saving Time, this section may contain times in both EST and EDT. Scheduled Medication Order 09/04/2013 09/05/2013 09/06/2013 acetaminophen (TYLENOL) tablet 1,000 mg (COMPLETED) 713 (Given - Provider: Marianna White RN) 1,000 mg, oral, PRE-OP ONCE, 1 dose, Fri09/06/13 at 0730, Routin e naproxen (NAPROSYN) tablet 500 mg (COMPLETED) 713 (Given - Provider: Marianna White RN) 500 mg, oral, PRE-OP ONCE, 1 dose, Fri09/06/13 at 0730, Routine oxyCODONE (OXYCONTIN) CR tablet 10 mg (COMPLETED) 713 (Given - Provider: Marianna White RN) 10 mg, oral, PRE-OP ONCE, 1 dose, 09/06/13 at 0730, Routine pregabalin (LYRICA) capsule 100 mg (COMPLETED) 714 (Given - Provider: Marianna White RN) 100 mg, oral, PRE-OP ONCE, 1 dose, Fri09/06/13 at 0730, Routine Continuous Medication Order 09/04/2013 09/05/2013 09/06/2013 lactated ringers (LR) infusion (CANCELED) 0710 (New Bag - Provider: Marianna White RN) at 25 mL/hr, intravenous, CONTINUOUS, St arting Fri09/06/13 at 0730, Until Fri09/06/13 at 1145, Routine documented in this encounter Orders Medications Ordered That Might Not Have Count Last Ord ered Date First Ordered Date Been Administered ceFAZolin (ANCEF) syringe 2 g 1 09/06/2013 oxyCODONE (ROXICODONE) immediate release 1 014 tablet 5 mg Procedures Count Last Ordered Date First Ordered Date ECG REPORT - SCANNED 1 09/10/2013 Admission Count Last Ordered Date First Ordered Date STATUS: OUTPATIENT SURGICAL OP 1 09/06/2013 BED/SERVICES Transfer Count Last Ordered Date First Ordered Date NOTIFY PPS PACU PATIENT DISCHARGE 1 09/06/2013 Discharge Count Last Ordered Date First Ordered Date DISCHARGE PATIENT 1 09/06/2013 documented in this encounter Care Teams Wire Machine Operator Relationship Specialty Start Date End Date Jelly Ivy MD PCP - General 04/29/[address] [address] documented as of this encounter
--- OUTSIDE RECORDS SUMMARY | 2022-01-10 09:39 | XMS_ITS | Encounter Summary ---
:[address] [facility] Address [address] [place] [address] Care Team Providers Name Role Phone Jelly Ivy MD Primary Care Provider Reason for Visit Reason Onset Date Comments Procedure 08/06/2013 Encounter Details Date Type Department Care Team Description 08/06/2013 Pre-Procedure [facility] Gokul Roman Shoulde r stiffness Orders Encounter Sports Medicine RN (Primary Dx) Program [place] [address] Social History Tobacco Use Types Packs/Day Years Used Date Current Every Day Smoker Alcohol Use Standard Drinks/Week Comments Yes 0 (1 standard drink = 0.6 oz pure alcoho l) Sex Assigned at Date Recorded Not on file documented as of this encounter Plan of Treatment Not on filedocumented as of this encounter Visit Diagnoses Diagnosis Shoulder stiffness - Primary Stiffness of joint, not elsewhere classi fied, shoulder region documented in this encounter Care Teams Pipe Line Repairer Relationship Specialty Start Date End Date Jelly Ivy MD PCP - General 04/29/12 [facility] [address] [address] documented as of this encounter
--- OUTSIDE RECORDS SUMMARY | 2022-01-10 09:39 | XMS_ITS | Encounter Summary ---
:1980 Author Organization [facility] Address [address] [place] [address] Care Team Providers Name Role Phone Jelly Ivy MD Primary Care Provider Reason for Visit Reason Onset Date Comments Appointment Related 11/12/2013 Encounter Details Date Type Department Care Team Description 11/12/[address] [facility] Gokul Roman R N Appointment Related Medicine Program - Kavitha Jeffries [place], [place] [address] Social History Tobacco Use Types Packs/Day Years Used Date Current Every Day Smoker Alcohol Use Standard Drinks/Week Comments Yes 0 (1 standard drink = 0.6 oz pure alcoho l) Sex Assigned at Date Recorded Not on file documented as of this encounter Miscellaneous Notes Telephone Encounter - Gokul Roman RN - 11/12/2013 3560 EDT Called and told patient and parents with MRI appointment : The following patient has been scheduled for a MRI on Friday12/05/2013 @ 8:40am at [facility]: check in @ 8:00am at registration. They verbalized understanding. Patient was instructed to call Dr. Flores's office at [phone] with any questions or concerns. Gokul Roman RN 11/12/2013 15:45 documented in this encounter Plan of Treatment Not on filedocumented as of this encounter Visit Diagnoses Not on filedocumented in this encounter Care Teams Leather Heel Breaster Relationship Specialty Start Date End Date Jelly Ivy MD PCP - General 04/29/[address] [address] documented as of this encounter
--- OUTSIDE RECORDS SUMMARY | 2022-01-10 09:39 | XMS_ITS | Encounter Summary ---
:1980 Author Organization [facility] Address [address] [place] [address] Care Team Providers Name Role Phone Jelly Ivy MD Primary Care Provider Reason for Referral Radiology Services (Routine/Next Available) - Closed Specialty Diagnoses / Procedures Referred By Contact Refer red To Contact Diagnoses Shoulder pain Joaquín Flores MD Procedures SHOULDER 2 OR MORE VIEWS [address] [facility] [address] [place] [address] Referral ID Status Reason Start Date Expiration Date Visits Requ ested Visits Authorized [id number] Closed 07/29/2013 1 1 Reason for Visit Reason Comments Shoulder Injury Right Encounter Details Date Type Department Care Team Description 07/29/2013 Office Visit [facility] Mark, Shoulder pain (Primary Dx); Sports Medicine Joaquín Conde MD Shoulder stiffness Program - [facility] [address] [place] [address] [address] [facility] [place] [phone] Social History Tobacco Use Types Packs/Day [...] - Inhaled Oxygen Concentration - - Weight 144.2 kg (318 lb) 07/29/2013 1003 EST Height 182.9 cm (6') 07/29/2013 1003 EST Body Mass Index 43.13 07/29/2013 1003 EST documented in this encounter Discharge Diagnoses Diagnosis 719.41 JOINT PAIN-SHLDER[ICD-9-CM] 719.51 JOINT STIFFNESS NEC-SHLDER[ICD-9- CM] documented in this encounter Discharge Disposition Disposition Code Departure Means Destination Auto Discharge documented in this encounter Progress Notes Gokul Roman RN - 07/29/2013 1125 EST Patient Education Topic: RIGHT SHOULDER MICAELA POSS. SCOPE LYSIS OF ADHESIONS DOS 08/02/13 DEPENDING ON DATE DECIDED BY PATIENT AND FAMILY. GOING TO CONTACT THIS AFTERNOON Method: Handout and Verbal Taught to: Caregiver, Family and Patient Barriers: None Outcomes: independent and verbalized understanding Signature: Gokul Roman RN 07/29/2013 1100 Joaquín Campa MD - 07/29/2013 1052 EST Slade Anderson is postop from a right shoulder arthroscopic repair with several anchors on 03/19/2013. He continued to have pain and limitations in his range of motion. I have reviewed his patient PT progress note which also documents that he has limited motion and increasing pain. He has been making some of his visits but is inconsistent going to his therapy. REVIEW OF SYSTEMS: No other orthopedic concerns. PAST MEDICAL HISTORY: Several medical issues that have been reviewed in his PRISM note. EXAM: Constitutional: No apparent distress. Cardiovascular: Brisk capillary refill. Psychiatric: Responsive to exam. Skin: Normal skin color. Musculoskeletal exam observation: He holds his arm splintedat his side. Palpation: He has got global tenderness about the shoulder that is mild. Range of motion: Forward flexion to 100, abduction to about 80, internal rotation across chest, external rotation to 30. His strength: Internal rotation is very strong, external rotation is weak. Supraspinatus: He can not get his arm kind of without using his scapula far enough to really do any resistance. He has a hard time getting his arm behind him to do the subscap push off test, but his belly press appears to be negative. Difficult to ascertain how strong his supraspinatus is due to the limited motion that hehas. He has definitely a frozen shoulder at this point in time. PLAN: Will be for a manipulation under anesthesia. The procedure, risks, and benefits were explainedand understood. He gave consent to proceed. I told him that we might consider a shoulder arthroscopyat the same time, but it would be unlikely that we could do it at the same time, would most likely just do the manipulation. documented in this encounter Plan of Treatment Not on filedocumented as of this encounter Procedures Procedure Name Priority Date/Time Associated Diagnosis Comme nts SHOULDER 2 OR MORE Routine 07/29/2013 10:38 Shoulder pain Resu lts for this VIEWS EST procedure are i n the results section. documented in this encounter Results SHOULDER 2 OR MORE VIEWS (07/29/2013 10:38 EST) Anatomical Region Laterality Modality Other Specimen Narrative [facility] - 07/02 11:51 EST SHOULDER 2 OR MORE VIEW ??07/29/2013 10:38 AM Signs and Symptoms/Comments: ??719.41-Pa in in joint, shoulder [id number]; right shoulder pain s/p 03/19/13. Comparisons: MR right shoulder 7 months prior. Technique: Axillary, neutral and subacro mial Y. view of the right shoulder. Findings: Enthesopathic changes are noted off the greater tuberosity at the insertion site of the rotator cuff muscl es. A small Hill-Sachs lesion is also a possibility. Mild degenerative changes are present in the glenohumeral joint. Procedure Note 07/29/2013 SHOULDER 2 OR MORE VIEW 07/29/2013 10:38 AM Signs and Symptoms/Comments: 719.41-Pain in joint, shoulder [id number]; right shoulder pain s/p 03/19/13. Comparisons: MR right shoulder 7 months prior. Technique: Axillary, neutral and subacro mial Y. view of the right shoulder. Findings: Enthesopathic changes are noted off the greater tuberosity at the insertion site of the rotator cuff muscl es. A small Hill-Sachs lesion is also a possibility. Mild degenerative changes are present in the glenohumeral joint. Performing Organization Address City/State/ZIP Code Phon e Number [facility] documented in this encounter Visit Diagnoses Diagnosis Shoulder pain - Primary Pain in joint, shoulder region Shoulder stiffness Stiffness of joint, not elsewhere classi fied, shoulder region documented in this encounter Care Teams Alteration Tailor Relationship Specialty Start Date End Date Jelly Ivy MD PCP - General 04/29/[address] [id number] documented as of this encounter
--- OUTSIDE RECORDS SUMMARY | 2022-01-10 09:39 | XMS_ITS | Encounter Summary ---
:1980 Author Organization [facility] Address [address] [place] [address] Care Team Providers Name Role Phone Jelly Ivy MD Primary Care Provider Reason for Visit Reason Comments Shoulder Injury Right Encounter Details Date Type Department Care Team Description 03/31/2013 Post-op Visit [facility] Juan Lees cuff (capsule) Sports Medicine sprain and s train Program - [facility] (Primary Dx) [address] [place] [address] Social History Tobacco Use Types [...] - Inhaled Oxygen Concentration - - Weight 151 kg (333 lb) 03/31/2013 1118 EDT Height 182.9 cm (6') 03/31/2013 1118 EDT Body Mass Index 45.16 03/31/2013 1118 EDT documented in this encounter Ordered Prescriptions Prescription Sig Dispensed Refills Start Date End Date HYDROcodone-acetaminophen Take 1 Tab by mouth 40 Tab 0 1 04/14/2013 (LORTAB) 5-500 mg every 4 hours as tabletIndications: Rotator needed for Pain. cuff (capsule) sprain documented in this encounter Discharge Disposition Disposition Code Departure Means Destination Auto Discharge documented in this encounter Progress Notes Joaquín Flores MD - 04/06/2013 1608 EDT I was present in clinic and available for consultation. Juan Rios PA-C - 03/31/2013 1121 EDT OFFICE VISIT: Status post 1 week right shoulder arthroscopy, subacromial decompression, right shoulder rotator cuff repair. SUBJECTIVE: The patient is doing well. Still a bit uncomfortable, but denies any numbness or tingling in the extremity. OBJECTIVE: On exam, incision sites are healing well. 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 He has good range of motion to the elbow. ASSESSMENT: Stable postop. PLAN: The patient has had sutures removed, Steri-Strips placed. It is okay for him to bathe using warm, soapy water. He is to continue with his PT program per protocol and is to follow up with Dr Flores in 4 or 5 weeks. Gokul Crooks RN - 03/31/2013 1119 EDT Patient is s/p Right shoulder arthroscopy, subacromial decompression and right shoulder rotator cuffrepair on 03/19/[address] Flores. I removed suture (s) from the patients right Shoulde and applied steri strips to the area per protocol. Patient is out of oxycodone and stated they do not do anything for him anyway. He explained that vicodin does help with the pain. He was told a script would be called into his pharmacy for Vicodin. We went through how to continue using the cryo cuff, and how to use his pain medication. He is going to call PT and make an appointment this week. Edil AGUILAR waspmaxi for visit. Gokul Roman RN 03/31/2013 11:23 documented in this encounter Plan of Treatment Not on filedocumented as of this encounter Visit Diagnoses Diagnosis Rotator cuff (capsule) sprain - Primary documented in this encounter Care Teams Knot Borer Relationship Specialty Start Date End Date Jelly Ivy MD PCP - General 04/29/12 [place] [address] documented as of this encounter
--- OUTSIDE RECORDS SUMMARY | 2022-01-10 09:39 | XMS_ITS | Encounter Summary ---
:1980 Author Organization [facility] Address [address] [place] [address] Care Team Providers Name Role Phone Jelly Ivy MD Primary Care Provider Reason for Referral Consult, Test and Treat (Routine/Next Available) - Closed Specialty Diagnoses / Procedures Referred By Contact Refer red To Contact Rehab Therapies Diagnoses Rotator cuff (capsule) sprain Gokul Roman RN Referral ID Status Reason Start Date Expiration Date Visits V isits Requested Authorized [id number] Closed Specialty 04/06/2013 1 1 Services Required Question Answer Reason for Request: status post Right shoulder a rthroscopy, subacromial decompression and right shoulder rotator c uff repair Surgery (and Date): 03/19/13 Reason for Visit Reason Onset Date Comments Other 04/06/2013 Encounter Details Date Type Department Care Team Description 04/06/2013 Orders Only [facility] Gokul Roman RN Rotat or cuff (capsule) Sports Medicine Program spra in and strain - [place] (Primary Dx) [address] [place], [place] [address] Social History Tobacco Use Types Packs/Day Years Used Date Current Every Day Smoker Alcohol Use Standard Drinks/Week Comments Yes 0 (1 standard drink = 0.6 oz pure alcoho l) Sex Assigned at Date Recorded Not on file documented as of this encounter Plan of Treatment Scheduled Referrals Name Type Priority Associated Diagnoses Order S chedule AMB CONSULT Outpatient Referral Routine Rotator cuff Ordered: PHYSICAL THERAPY (capsule) sprain and 01/2013 strain documented as of this encounter Visit Diagnoses Diagnosis Rotator cuff (capsule) sprain - Primary documented in this encounter Care Teams Marketing Rep Relationship Specialty Start Date End Date Jelly Ivy MD PCP - General 04/29/[address] [address] documented as of this encounter
--- OUTSIDE RECORDS SUMMARY | 2022-01-10 09:40 | XMS_ITS | Encounter Summary ---
:1980 Author Organization [facility] Address [address] [place] [address] Care Team Providers Name Role Phone Jelly Ivy MD Primary Care Provider Encounter Details Date Type Department Care Team Description 03/19/2013 - [facility] Gunnar Che c uff (capsule) sprain (Primary Dx); 03/20/2013 Encounter Cardiothoracic Surgery Nanette Conde MD Rotator cuff tear; [address] [facility] (obstructive sleep apnea) [address] [facility] JOSÉ ANTONIO [address] [place] [address] [place] [phone] Social History Tobacco Use Types Packs/Day Years Used Date Current Every Day Smoker Alcohol Use Standard Drinks/Week Comments Yes 0 (1 standard drink = 0.6 oz pure alcoho l) Sex Assigned at Date Recorded Not on file documented as of this encounter Last Filed Vital Signs Vital Sign Reading Time Taken Comments Blood Pressure 98/60 03/20/2013 0620 EDT Pulse 56 03/20/2013 0620 EDT Temperature 35.1 ??C (95.2 ??F) 03/20/2013 0620 EDT Respiratory Rate 18 03/20/2013 0620 EDT Oxygen Saturation 100% 03/20/2013 0645 EDT Inhaled Oxygen Concentration - - Weight 151 kg (333 lb) 03/19/2013 2200 EDT Height 182.9 cm (6') 03/19/2013 2200 EDT Body Mass Index 45.16 03/19/2013 2200 EDT documented in this encounter Discharge Summaries Aleksandr Alex MD - 03/19/2013 1208 EDT Discharge Summary Chief Complaint/Reason for Admission: Right shoulder pain, rotator cuff tear Admitted Via: DOSA Principal/Final Diagnosis: Right shoulder rotator cuff tear Principal Procedure: *Right Shoulder Arthroscopy Rotator Cuff Repair, Subacromial Date: 03/19/2013 Secondary Procedures: none Condition at Discharge: Stable Assessment at Discharge: Vital signs: Patient Vitals for the past 12 hrs: BP Pulse Heart Rate Resp Temp SpO2 O2 Flow Rate (L/min) O2 Device FIO2 % 03/20/13 0645 - - 64 BPM - - 100 % - - - 03/20/13 0620 98/60 mmHg 56 48 BPM 18 35.1 ??C (95.2 ??F) 100 % 2 l/min Nasal cannula - 03/20/13 0600 - - 45 BPM - - 100 % - - - 03/20/13 0516 113/48 mmHg - 48 BPM - - 100 % - - - 03/20/13 0402 106/55 mmHg - - - - - - - - 03/20/13 0400 - - 65 BPM - - 98 % 2 l/min Nasal cannula - 03/20/13 0356 - - - - - 99 % 2 l/min Nasal cannula - 03/20/13 0300 - - 60 BPM - - 97 % - Room air - 03/20/13 0243 124/61 mmHg - 69 BPM 18 35.6 ??C (96.1 ??F) 98 % - Room air - 03/20/13 0200 - - 75 BPM - - - - - - 03/20/13 0007 - - 66 BPM 16 - 97 % - CPAP 21 % 03/20/13 0000 - - 60 BPM - - - - - - 03/19/13 2300 - - 61 BPM - - - - - - 03/19/132215 - - - - - 98 % - Room air - 03/19/132205 130/62 mmHg - - 16 35.2 ??C (95.4 ??F) - - Room air - 03/19/132149 - - 76 BPM 18 - 98 % - Room air - 03/19/132099 - - 67 BPM - - 97 % - Room air - 03/19/132013 123/68 mmHg - - 16 35.1 ??C (95.2 ??F) - - Room air - Hospital Course: 33 y.o. y/o male admitted to [facility] following an uncomplicated *Right Shoulder Arthroscopy Rotator Cuff Repair, Subacromial. The patient tolerated the procedure well. He recovered on thefloor. He meet all post-op goals including tolerating a diet, voiding without issue, and pain controlled on oral medications. TENS unit was indicated as patient's pain could not be controlled adequately with narcotic pain medicine due to medication side effects. After placement of the TENS unit, patient reported decrease in pain and was better able to participate in physical therapy. Use of TENS should continue until further evaluation at follow up visit in 1 month. Relevant Studies at Discharge: none Last Lab Results at Discharge: BUN: No results found for this basename: BUN Creatinine: No results found for this basename: CREATININE CBC: Lab Results Component Value Date WBC 12.40* 03/20/2013 RBC 4.97 03/20/2013 HGB 14.6 03/20/2013 HCT 44.1 03/20/2013 MCV 89 03/20/2013 MCH 29.5 03/20/2013 MCHC 33.2 03/20/2013 PLT 214 03/20/2013 DIFFTYPE Automated 03/20/2013 Electrolytes: No results found for this basename: Na, K, CL, CO2 Home Health [id number] Encounter: I certify that this patient is under my care and that I, or a Medicare authorized non-physician provider (HIGH SCHOOL COORDINATOR or PA) working with me, had a [id number] encounter with this patient on that was in whole or in part related to the reason the patient needs home health care. The findings of this encounter in dicate that the patient requires jail or therapist services for the reasons listed below. intermediate services: - are required to train the patient/caregiver to manage the treatment regimen for this illness or condition Skilled therapist services: - are required because of the complexity of the therapy needed to treat the injury, illness or condition Additionally, the findings of this encounter support that the patient is homebound because: - post-surgical restrictions or conditions limit the patient's ability to leave home ?? cc: MD Jelly NICK Discharge Summary Completed: Aleksandr Alex MD 03/20/2013 7:42 [id number] documented in this encounter Discharge Instructions Aleksandr Harmon MD - 03/20/2013 Dr. Che [phone] OUTPATIENT SURGERY ROTATOR CUFF REPAIR POST-OP INSTRUCTIONS BANDAGE Physical Therapy may change your dressing on post-op day 3 or 4. Arthroscopic patients may change the dressing on post-op day 5 with band aids. Open procedure patients should not remove the bandage themselves; this may be done by PT or at your first post-op visit. If dressing becomes saturatedbefore this time you may add new sterile gauze on top of the old dressing but do not remove the old dressing. You may call the office for a nurse visit to change your dressing if it becomes saturated before your post-op visit. SHOWERS Arthroscopic patients may shower on post-op day 5. Patients who underwent an open procedure must keep the incision dry and dressing intact until the first post-op visit when you will receive further instructions. CRYO/CUFF The Cryo/Cuff is an ice bag that also acts as a sling. This should be worn for the & SLING first several days after surgery (refer to Cryo/Cuff information sheet). If you choose not to wear the Cryo/Cuff you should be wearing your sling for comfort. Always wear the sling to sleepor when in public places for the first 6 weeks after surgery. Sling should come off to do pendulum exercises. PHYSICAL Physical Therapy will be started 3-4 days after your surgery. This should be THERAPY arranged prior to your surgery. MEDICATIONS You will be given prescriptions for Oxycontin 10 mg every 12 hours for 3 days, Oxycodone5 mg 1-3 tabs every 4 hours (as needed), Acetaminophen 1000 mg every 6 hours (as needed), Naprosyn 500 mg tabs 1 tab twice a day for 3 days. ACTIVITIES Begin pendulum exercise 1 day after your surgery. Your physical therapist may provide youwith a yonis that you may use immediately. INFECTION If pain becomes severe, if you develop chills / fever, have discolored drainage from your incisions or develop calf pain / tenderness, please call our office immediately. CALL IF YOU HAVE ANY QUESTIONS OR PROBLEMS [phone] documented in this encounter Medications at Time of Discharge Medication Sig Dispensed Refills Start Date End Date amlodipine (NORVASC) 5 mg Take 5 mg by mouth 0 tablet daily. cloNIDine (CATAPRES) 0.1 Take 0.1 mg by mouth at bedtime 1-2 tab at h s prn. 0 mg tablet EPINEPHrine (EPIPEN) 0.3 Inject 0.3 mg into 0 mg/0.3 mL (1:1,000) the muscle once as injection needed. famotidine (PEPCID) 40 mg Take 40 mg by mouth 0 tablet daily as needed. lisinopril-hydrochlorothia Take 1 Tab by mouth 0 zide (PRINZIDE, daily. ZESTORETIC) 20-25 mg per tablet acetaminophen (TYLENOL) Take 2 Tabs by 240 Tab 0 03/20/20 13 04/19/2013 325 mg tablet mouth every 6 hours for 30 days. aspirin 325 mg tablet Take 1 Tab by mouth 14 Tab 0 03/2003/27/2013 2 times daily for 7 days. docusate sodium (COLACE) Take 2 Caps by 120 Cap 0 013 04/19/2013 100 mg capsule mouth 2 times daily for 30 days. melatonin 3 mg tablet Take 1 Tab by mouth 0 08/10/2013 daily. At dinner time methocarbamol (ROBAXIN) Take 1-2 Tabs by 70 Tab 0 201208/10/2013 500 mg tablet mouth every 6 hours as needed (muscle spasms). MULTIVITAMIN (MULTI-DAY Take by mouth 0 08/10/2013 ORAL) daily. oxyCODONE (ROXICODONE) 5 Take 1-3 Tabs by 80 Tab 0 03/2008/10/2013 mg immediate release mouth every 4 hours tablet as needed for Pain. promethazine (PHENERGAN) Take 1 Tab by mouth 20 Tab 1 08/10/2013 12.5 mg tablet every 6 hours as needed for Nausea. UNABLE TO FIND Take 1 Tab by 0 014 mouth. Calcium: ? dosage documented as of this encounter Ordered Prescriptions Prescription Sig Dispensed Refills Start Date End Date promethazine (PHENERGAN) Take 1 Tab by mouth 20 Tab 1 08/10/2013 12.5 mg tablet every 6 hours as needed for Nausea. oxyCODONE (ROXICODONE) 5 Take 1-3 Tabs by 80 Tab 0 03/2008/10/2013 mg immediate release mouth every 4 hours tablet as needed for Pain. methocarbamol (ROBAXIN) Take 1-2 Tabs by 70 Tab 0 201208/10/2013 500 mg tablet mouth every 6 hours as needed (muscle spasms). docusate sodium (COLACE) Take 2 Caps by 120 Cap 0 013 04/19/2013 100 mg capsule mouth 2 times daily for 30 days. aspirin 325 mg tablet Take 1 Tab by mouth 14 Tab 0 03/2003/27/2013 2 times daily for 7 days. acetaminophen (TYLENOL) Take 2 Tabs by 240 Tab 0 03/20/20 13 04/19/2013 325 mg tablet mouth every 6 hours for 30 days. documented in this encounter Discharge Disposition Disposition Code Departure Means Destination Home or Self Care documented in this encounter Progress Notes Pretty Cuevas, PT - 03/20/2013 0919 EDT [facility] Physical Therapy Contact Note Date of Service: 03/20/2013 A physical therapy consult order was received, the medical record was reviewed, and an examination was completed. Please refer to the completed therapy notes for specifics. The recommendation for discharge is home with outpatient PT follow up per MD protocol. PRETTY CUEVAS PT 03/20/2013 9:19 Pretty Cuevas, PT - 03/20/2013 0743 EDT [facility] Physical Therapy Initial/Discontinue Evaluation Note Date of Service: 03/20/2013 Reason for Referral: Priority for discharge Precautions: PT Evaluation and Treat Question: Reason Evaluation and Treatment? Answer: Routine Comment: mobilization Ambulate patient, NWB, activity as tolerated SUBJECTIVE: I am ready to go , I am glad that you are here so we can get this done Pain: Location: right shoulder Intensity: 2/10 (at present), 2/10 (at best), 2/10 (at worst) Frequency: intermittent Quality: ache Aggravating factors: None with PT session Alleviating factors: medications OBJECTIVE: Patient Profile: Patient is a 33 y.o. male admitted on 03/19/2013 secondary to *Right Shoulder Arthroscopy Rotator Cuff Repair, Subacromial The patient lives at [address] [address] Home environment Lives: Alone, but will be staying with parents currently Caregiver Support: 24-hour assist when staying with parents Equipment Available: None Home Environment: Apartment Home Layout: stairs at each location Prior Level of Function: Independent Services prior to admission: None Work/Leisure: currently not working due to arm injury Medical/Surgical History: Current: Patient Active Problem List Diagnoses ??? Rotator cuff tear ??? BETHANY (obstructive sleep apnea) Per 03/19/13 op note: Surgeon: Nanette Che MD Assistants: LAUREN Oseguera Pre op diagnosis/Indications: Right shoulder pain, rotator cuff tear Post op diagnosis: Same Procedure: *Right Shoulder Arthroscopy Rotator Cuff Repair, Subacromial decompression Past: Past Medical History Diagnosis Date ??? Arthritis ??? Back pain ??? Joint pain ??? High blood pressure ??? Asthma ??? Anxiety ??? Depression ??? Obesity History reviewed. No pertinent past surgical history. Medications: Medications reviewed Arousal, Attention, and Cognition: Orientation: Alert Oriented to person, place, and time Patient is very anxious about discharge as he has someplace to do. Despite running IV and inability to be discharged currently he speedily performs all tasks during exam. Cardiopulmonary: Vitals stable on telemetry throughout session. After ambulation BP 134/71, HR 84, O2 100%. Integumentary/Anthropometric Characteristics: Palpation/Observation: Skin: Skin: post op dressing in place with no drainage noted. Patient also with cryocuff and regularsling. This sling placement was not optimal due to movement of sling and this was repositioned with patient educated on proper sling placement and cryocuff use. Edema: right shoulder Posture: Protracted shoulders Range of Motion and Joint Integrity: Active Range of Motion: Within normal limits except as noted Upper Quarter: Left Upper Extremity: Right Upper Extremity: shoulder NE due to surgery and no orders for ROM, elbow in sling, wrist and hand WNL Cervical Spine: Lower Quarter: Left Lower Extremity: Right Lower Extremity: Lumbar Spine: N/A Muscle Performance: Strength: Manual muscle test completed in: sitting Upper Quarter: Left Upper Extremity: grossly 4-5/5 Right Upper Extremity: hand video game producer 5/5, others N/E due to acute surgery Cervical Spine: at least 3/5 Lower Quarter: Left Lower Extremity: grossly 4-5/5 and equal bilaterally Right Lower Extremity: grossly 4-5/5 and equal bilaterally Lumbar Spine: N/E Sensation, Reflexes, and Nerve Integrity: Light Touch Sensation: Upper Quarter: Intact C2-T1 Lower Quarter: Intact for lower extremities Neuromotor Function/Development: No problems noted Balance, Locomotion, and Gait: Balance: No loss of balance observed throughout physical therapy session Locomotion: Not evaluated as wheelchair mobility does not apply to this patient. Gait: Assistive device/distance/assist/deviations: ambulated 500 feet with independence and no loss of balance. Reciprocal gait noted. Stairs: up and down 2 steps (limited due to running IV with antibiotic) with independence with good technique and no loss of balance Self-Care, Home Management, Work, and Leisure: Mobility evaluation as follows: Rolling: N/E Supine to sit: independence Sit to supine: independence Sit to stand: independence Stand to sit: independence Informed Consent: The patient consented to the physical therapy evaluation. The patient agrees to and understands the physical therapy treatment plan and goals. Interventions Completed Today: Physical Therapy today at: 8:55 x 20 minutes Examination: 15 minutes Intervention: 5 minutes Intervention included: Therapeutic exercises: patient instructed in ice use recommendations and current cryocuff use. Patient able to connect and disconnect tubing and understands use of pump as well as recommendations for ice use. He was instructed in right UE NWB precaution and current use of sling and cryocuff with slingpositioning also educated to patient. Verbal education provided about 1 handed activities and sequencing for donning/doffing shirt. We were unable to practice this as patient with running IV, but nursing will re-enforce when IV completed prior to discharge when patient is dressing. Understanding verbalized on all. Patient/Family Education: Topic: Discharge planning Equipment use Gait Positioning Precautions/protocol Role of therapy Stairs Ice use PT follow up as outpatient per MD protocol recommendation Learner: patient Method: verbal and demonstration Barriers to Learning: none noted with tasks today Outcome: verbalized understanding and returned demonstration This sling placement was not optimal due to movement of sling and this was repositioned with patient educated on proper sling placement and cryocuff use. Team Communication: nursing aware of patient performance with PT and will re- enforce dressing once IV is completed ASSESSMENT: Upper Quarter Screen: Positive findings (please refer to physical therapy prognosis section of assessment for details) Physical Therapy Diagnosis:This patient status post right shoulder surgery (Right Shoulder Arthroscopy Rotator Cuff Repair, Subacromial decompression) presents with a PT diagnosis of altered level of mobility due to right UE restrictions. Physical Therapy Prognosis: patient did very well with PT exam today and demonstrates high level of mobility with no balance losses while right UE is NWB and positioned in a sling. Patient demonstratesfunctional level necessary for home and he will be with his parents initially which will be helpful due to difficulties with 1 handed activities that are necessary currently due to post op restrictions. With PT treatment today he is able to meet goals of: verbalize understanding of PT recommendations for ice use and verbalize understanding of positioning recommendations, 1 handed ADL activities and adhere to right UE NWB precaution. Patient does not require additional skilled PT in this setting but i s recommended to have follow up outpatient PT for progression of ROM and strengthening program per MD protocol. Short-Term Goals: N/A ?? Long-Term Goals: MET verbalize understanding of PT recommendations for ice use and verbalize understanding of positioning recommendations, 1 handed ADL activities and adhere to right UE NWB precaution. PLAN: Discontinue Physical Therapy Recommended Discharge Destination: Home with caregiver Recommended Discharge Services: Outpatient physical therapy Recommended Equipment Needs: No equipment necessary Other recommendations: No other consults recommended at this time Pager: [phone] PRETTY CUEVAS PT 03/20/2013 7:44 Aleksandr Nails MD - 03/20/2013 0729 EDT Orthopaedics Progress Note Procedure: Right rotator cuff repair (03/19/2013) Surgeon: MD Mark Subjective: Patient states pain is just fine. Feels ready to go home. Objective: Vitals: BP 98/60 Pulse 56 Temp(Src) 35.1 ??C (95.2 ??F) (Tympanic) Resp 18 Ht 182.9 cm (72) Wt 151.048 kg (333 lb) BMI 45.16 kg/m2 SpO2 100% Exam: Gen - NAD, A&Ox3 Pulm- Non-labored breathing CV- No peripheral cyanosis. RUE: Right shoulder with clean and dry dressing. Cryocuff in place. Wrist flex/ext 5/5, EPL/FPL 5/5, Finger flex/ext 5/5, Finger abd/add 5/5. LTSI MURA, R 2+ fingers WWP Assessment and Plan: Angie Anderson III is a 33 y.o.male that is POD#1 s/p right rotator cuff repair. Doing well. Afebrile, hemodynamically stable. ?? Pain control as ordered ?? Reg diet ?? DVT prophy: mobilize, ambulate ?? Dispo: home this morning Aleksandr Alex M.D. #[id number], 03/20/2013, 7:29 Johana Chacko RN - 03/20/2013 8704 EDT Data: Notified by plant security guard that pt took Melatonin 3 mg, and clonidine 0.1 mg po which he had on hisperson. Pt told this chief underwriter that he had no medication with him. Action: Pt assessed. Dr. Alex #[id number] notified. VS taken. Pt educated regarding not taking any medications by himself while in the hospital. And also educated that he needs to call the staff if he needsanything. Pharmacy also notified and rest of the medications sent to the pharmacy. Response: BP 124/61, HR 69 however, HR at this time bradycardic in 40's. BP stable. Dr. Alex aware.Close monitoring in progress. Pt resting comfortably in bed at this time. Continue to closely monitor the patient through out the shift. Johana Boyer RN 03/20/2013 5:52 Aleksandr Nails MD - 03/19/2013 1402 EDT Orthopaedics Post-op Check Procedure: Right rotator cuff repair (03/19/2013) Surgeon: MD Mark Subjective: Patient states pain has been bad, but it is better now. Tolerating diet. Feels that he will be readyto go home tomorrow. Objective: Vitals: BP 130/62 Temp(Src) 35.2 ??C (95.4 ??F) (Tympanic) Resp 16 Ht 182.9 cm (72) Wt 151.048 kg (333 lb) BMI 45.16 kg/m2 SpO2 98% Exam: Gen - NAD, A&Ox3 Pulm- Non-labored breathing CV- No peripheral cyanosis. RUE: Right shoulder with clean and dry dressing. Cryocuff in place. Wrist flex/ext 5/5, EPL/FPL 5/5, Finger flex/ext 5/5, Finger abd/add 5/5. LTSI MURA, R 2+ fingers WWP Assessment and Plan: Angie Anderson III is a 33 y.o.male that is POD#0 s/p right rotator cuff repair. Doing well. Afebrile, hemodynamically stable. ?? Pain control as ordered ?? Reg diet ?? DVT prophy: mobilize, ambulate ?? ABX: periop ancef ?? Dispo: pending PT recs, likely tomorrow Aleksandr Alex M.D. #[id number], 03/19/2013, 23:14 Faith Barcenas RN - 03/19/2013 1705 EDT 1650 Pt admitted to PACU post right shoulder surgery. Pt awake, denies pain, VSS, anesthesia at bedside. Name/MRN bracelet and allergy bracelet present on arrival. Side rails up both sides for pt safety post anesthesia. Pt belongings at bedside.-djp 171 Dr Che in to see pt with parents.-djp 1814 Pt drinking juice, talking to parents. 1942 Report called to Namita on SB3.-djp 1946 Escorted pt on O2 sat monitor with transport .-djp Mily Noel RN - 2013 0903 EDT Angie Anderson III has been instructed as follows regarding medication administration for the day of the scheduled procedure. Date of Surgery: 03/19/13 Instructions for Taking Medications Day of Surgery Medication Last Dose Hold DOS Take DOS cloNIDine (CATAPRES) 0.1 mg tablet Yes lisinopril-hydrochlorothiazide (PRINZIDE, ZESTORETIC) 20-25 mg per tablet Yes melatonin 3 mg tablet Yes MULTIVITAMIN (MULTI-DAY ORAL) 03/12/13 yes calcium yes EPINEPHrine (EPIPEN) 0.3 mg/0.3 mL (1:1,000) injection Yes prn famotidine (PEPCID) 40 mg tablet Yes amlodipine (NORVASC) 5 mg tablet Yes Other medication instructions: Stop NSAIDS and Aspirin products 10 days prior to surgery and Stop supplements 7 days prior to surgery Above med list /instructions reviewed with pts. Dad: angie. Verbalized understanding of preop instructions. Demetria Hansen RN - 02/24/2013 1327 EDT Pt very vague about health hx, and impatient, falling asleep readily, mom did not bring information (med list) with her documented in this encounter H&P Notes SURVEY TECHNOLOGIST, SCAN 2 - 03/25/2013 1412 EDT Nanette Cheney MD - 03/19/2013 1145 EDT The preoperative history and physical which was performed within 30 days of this procedure has been reviewed and the clinically appropriate elements of the physical examination havebeen repeated. There are no changes to the documented history and physical or if so such changes aredocumented below NANETTE CHE MD 03/19/2013 11:45 documented in this encounter Procedure Notes SURVEY TECHNOLOGIST, SCAN 2 - 03/25/2013 1412 EDTAssociated Order(s): ECG REPORT - SCANNED SURVEY TECHNOLOGIST, SCAN 2 - 03/25/2013 1412 EDTAssociated Order(s): ORDERS - SCANNED SURVEY TECHNOLOGIST, SCAN 2 - 03/25/2013 1412 EDTAssociated Order(s): IMPLANT RECORD - SCANNED documented in this encounter Nursing Notes SURVEY TECHNOLOGIST, SCAN 2 - 03/25/2013 1412 EDT documented in this encounter OR Notes Anesthesia Preprocedure Evaluation - SURVEY TECHNOLOGIST, SCAN 2 - 03/25/2013 1412 EDT R PreOp - SURVEY TECHNOLOGIST, SCAN 2 - 03/25/2013 1412 EDT nesthesia Preprocedure Evaluation - SURVEY TECHNOLOGIST, SCAN 2 - 03/24/2013 1557 EDT R Surgeon - Nanette Che MD - 03/20/2013 2223 EDT OPERATIVE REPORT SERVICE DATE: 03/19/2013 SURGEON: Nanette Che MD ENTERPRISE APPLICATION ANALYST: No resident surgeon available due to duty hour restrictions. LAUREN Coleman assisted and participated in all aspects of the surgical procedure. PREOPERATIVE DIAGNOSIS: Right shoulder rotator cuff tear. POSTOPERATIVE DIAGNOSIS: Right shoulder rotator cuff tear. PROCEDURE: Right shoulder arthroscopy, subacromial decompression and right shoulder rotator cuff repair. COMPLICATIONS: None. SPECIMENS: None. ANESTHESIA: General. IMPLANTS: Three plastic Healicoil anchors with 2 sutures on each. NARRATIVE: The patient was taken to the operating room, laid supine, successful general anesthesia performed. The shoulder was examined and exhibited a full range of motion and had normal-appearing skin. Site ID was confirmed as the right shoulder. Briefing was complete, and 30 mL of 0.25% Marcaine was injected inside the shoulder joint. He was then sat up in the beach chair position. He is a very large gentleman, and care was taken to protect his body as best we could on the table, and care was takento protect him during the surgical procedure. Right shoulder was then prepped and draped in a sterile fashion, and we began our surgery. Posteriorportal was established 1st, about 4 down and 4 medial to the posterolateral aspect of the acromion and the anterior portal established 2nd in the triangle. We then looked inside the shoulder joint. Superiorly, the biceps tendon was intact. The biceps anchor was intact. There was no subluxation of the tendon that was visual. Anterior to the biceps we could definitely see a rotator cuff tear. We then looked down at the subscapularis tendon, which was intact. The anterior labrum was intact. The glenohumeral joint was intact with a good cartilage. Posterior labrum was intact. We could not drop into thepouch just due to his significant size. We went back up, marked the rotator cuff tears. We identified there was a tear beginning at the biceps anchor and then heading back toward infraspinatus and slightly into it. It was just an avulsion of bone. Went to the subacromial space next. Subacromial space: In the subacromial space, we identified a lotof fat and bursal-type tissue. The bursal-type tissue was debrided very carefully, and I identified the downsloping acromion. A libertad was then placed into the shoulder and a small subacromial decompression was performed, removing a couple millimeters of bone laterally and then leveling the joint. Rotator cuff tear was then identified, and it was in the supraspinatus and partially into the infraspinatus tendon. Some of the tendon in this area right behind the biceps tendon was frayed and then became better tendon as it moved more posteriorly. It was in near anatomic position and was easily identified. I cleared this area very thoroughly of its surrounding tissues and then had a nice area in the bone with which to replace the tendon. Rotator cuff repair: We then debrided the bone very carefully, got back down on the bone nicely, andthen grabbed the tendon itself and were able to easily advance it into the bed. We then placed 3 Healicoil anchors, beginning at the biceps anchor and then moving more laterally and posteriorly. We used anchors wit 2 sutures. We then repaired the cuff by tying simple [place] slider selina's and tied sequentially. We had an anatomic reduction of the cuff. The cuff moved very nicely when we rotated it and was a very substantial repair. We then thoroughly irrigated the shoulder joint and closed our orthopedic portals. We then put 30 mL of 0.25% Marcaine without epi into the subacromial space. Unless otherwise noted, there were no complications, no blood loss, no cultures obtained, no specimens removed, and no drains retained. Nanette Che MD 05 07 PM / Nanette Che MD kn Confirmation: [id number] Dictation ID: [id number] Anesthesia Procedure Notes - SURVEY TECHNOLOGIST, SCAN 2 - 03/19/2013 1659 EDT R PreOp - SURVEY TECHNOLOGIST, SCAN 2 - 03/19/2013 1649 EDT nesthesia Preprocedure Evaluation - SURVEY TECHNOLOGIST, SCAN 2 - 03/19/2013 1527 EDT documented in this encounter Miscellaneous Notes Scanned Note-Null - SURVEY TECHNOLOGIST, SCAN 2 - 03/25/2013 1412 EDT canned Note- Null - SURVEY TECHNOLOGIST, SCAN 2 - 03/25/2013 1412 EDT lan of Care - Johana Boyer RN - 03/19/2013 2356 EDT Problem: HOSPITAL ORIENTATION/SAFETY Goal: Oriented To Hospital Environment Outcome: Ongoing Admission Note D - This is a(n) 33 y.o. male who is being admitted from PACU This is post-op day 1 for the patient. Patient is status-post right rotator cuff repair. A - Vital signs taken. Patient oriented to unit and room. Call light and bed use reviewed. Call light within reach, bed placed in low position and table at bedside. Room is free of clutter. R - Continue to assess and monitor patient. 03/19/2013 23:55 Johana Boyer RN nesthesia Post-Caryal - Devonte Garcia MD - 03/19/2013 1748 EDT Post Anesthesia Evaluation Note Date of Service: 03/19/2013 Angie Anderson III, a 33 y.o. year old male has received General Anesthesia He has been evaluated,assessed and discharged from anesthesia care with stable cardiorespiratory function and alert mentalstatus. The last set of recorded vital signs and pain rating were reviewed: Temp: 36 ??C (96.8 ??F) (03/19/131649), Heart Rate: 79 BPM (03/19/131714), BP: 112/44 mmHg (03/19/131714), Resp: 18 (03/19/131714), SpO2: 90 % (03/19/131714),Numeric Pain Level (Scale 1-10): 0 Angie Anderson III participated in this evaluation unless otherwise noted. His pain, nausea and vomiting have been managed and his body temperature and fluid balance have been restored. Additional monitoring and assessment needs have been addressed. If present, any postoperative events are documented below. If the regional block for postoperative analgesia was intended to last greater than 48 hours, Angie Conde Anderson BRIDGET will be followed by the Acute Pain Service. Devonte Garcia MD 03/19/2013 17:49 documented in this encounter Plan of Treatment Not on filedocumented as of this encounter Procedures Procedure Name Priority Date/Time Associated Comments Diagnosis IMPLANT RECORD - 03/25/2013 14:12 Results for this SCANNED EDT procedure are i n the results section. ECG REPORT - SCANNED 03/25/2013 14:12 Res ults for this EDT procedure are i n the results section. ORDERS - SCANNED 03/25/2013 14:12 Results for this EDT procedure are i n the results section. SCREENING GLUCOSE Routine 03/20/2013 6:40 Results for this EDT procedure are i n the results section. ELECTROLYTES Routine 03/20/2013 6:40 Results for this EDT procedure are i n the results section. DIFFERENTIAL Routine 03/20/2013 0:09 Results for this EDT procedure are i n the results section. COMPLETE BLOOD COUNT Routine 03/20/2013 0:09 Resu lts for this EDT procedure are i n the results section. COMPLETE BLOOD COUNT Routine 03/20/2013 0:09 AND DIFFERENTIAL EDT documented in this encounter Results ECG REPORT - SCANNED (03/25/2013 14:12 EDT) Specimen Narrative 03/25/2013 14:41 EDT Procedure Note SURVEY TECHNOLOGIST, SCAN 2 - 03/25/2013 14:12 EDT ORDERS - SCANNED (03/25/2013 14:12 EDT) Specimen Narrative 03/25/2013 14:41 EDT Procedure Note SURVEY TECHNOLOGIST, SCAN 2 - 03/25/2013 14:12 EDT IMPLANT RECORD - SCANNED (03/25/2013 14:12 EDT) Specimen Narrative 03/25/2013 14:41 EDT Procedure Note SURVEY TECHNOLOGIST, SCAN 2 - 03/25/2013 14:12 EDT ELECTROLYTES (03/20/2013 6:40 EDT) Pathologist Sig nature Sodium 139 136 - 145 mEq/L [facility] Potassium 4.0 3.5 - 5.0 mEq/L [facility] Chloride 99 96 - 110 mEq/L [facility] CO2 27 24 - 32 mEq/L [facility] Specimen Blood specimen (specimen) Performing Organization Address [facility] Phon e Number [facility] [address] [place] [address] SERVICES [facility] [address] [place] [address] (ABNORMAL) SCREENING GLUCOSE (03/20/2013 6:40 EDT) Pathologist Sig [facility] Glucose, Screening 119 (H) 70 - 100 mg/dl [facility] Specimen Blood specimen (specimen) Performing Organization Address [facility] Phon e Number [facility] [address] [place] [address] SERVICES [facility] [address] [place] [address] (ABNORMAL) DIFFERENTIAL (03/20/2013 0:09 EDT) Pathologist Sig nature Neutrophils 91.7 (H) 45.5 - 79.7 % [facility] Lymphocytes 5.4 (L) 15.0 - 46.8 % [facility] Monocytes 2.1 1.8 - 12.0 % [facility] Eosinophils 0.1 (L) 0.6 - 6.9 % [facility] Basophils 0.7 0.2 - 1.4 % [facility] ABS Neutrophils 11.37 (H) 2.20 - 8.85 K/cmm [facility] ABS Lymphs 0.67 (L) 1.09 - 3.30 K/cmm [facility] ABS Monocytes 0.27 0.1 - 0.8 K/cmm [facility] ABS Eosinophils 0.01 (L) 0.03 - 0.61 K/cmm [facility] ABS Basophils 0.09 0.01 - 0.11 K/cmm [facility] Type of Diff: Automated [facility] Specimen Performing Organization Address [facility] Phon e Number [facility] [address] [place] [address] SERVICES [facility] [address] [place] [address] (ABNORMAL) HEMAGRAM (03/20/2013 0:09 EDT) Pathologist Sig nature WBC 12.40 (H) 4.0 - 10.4 K/cmm [facility] RBC 4.97 4.36 - 5.78 M/cmm [facility] Hemoglobin 14.6 13.8 - 17.3 gm/dl [facility] HCT 44.1 39.5 - 50.2 % [facility] MCV 89 81 - 95 fl [facility] MCH 29.5 27.6 - 33.0 pg [facility] MCHC 33.2 32.8 - 36.4 gm/dl [facility] PLT 214 141 - 320 K/cmm [facility] RDW-CV 14.3 (H) 11.8 - 14.1 % [facility] Specimen Performing Organization Address [facility] Code Phon e Number [facility] [address] [place] [address] SERVICES [facility] [address] [place] [address] documented in this encounter Visit Diagnoses Diagnosis Rotator cuff tear - Primary Rotator cuff (capsule) sprain Rotator cuff (capsule) sprain BETHANY (obstructive sleep apnea) Obstructive sleep apnea (adult) (pediatr ic) documented in this encounter Administered Medications Inactive Administered Medications - up to 3 most recent administrations Medication Order MAR Action Action Date Dose Rate Site acetaminophen (OFIRMEV) IV Given by Other 03/19/2013 14:45 EDT 1,000 mg solution 1,000 mg 1,000 mg, intravenous, NOW X1, 1 dose, On Fri03/19/13 at 1515, Is the patient NPO? If No, state reason why oral acetaminophen cannot be used in Comment field. Yes, Is this patient nothing by rectum? If No, state why rectal acetaminophen cannot be used in the Comment field. Yes, Are NSAIDs contraindicated in this patient? No, Routine acetaminophen (TYLENOL) tablet 1,000 mg Given 03/19/2013 12:21 EDT 1,000 mg 1,000 mg, oral, PRE-OP ONCE, 1 dose, On Fri03/19/13 at 1230, Routine, Pre Op Day of Surgery acetaminophen (TYLENOL) tablet 650 mg Given 03/20/2013 6:20 EDT 650 mg 650 mg, oral, EVERY 6 HOURS, First dose on Fri03/20/13 at 0000, Until Discontinued, Routine, On Unit Given 03/19/2013 23:11 EDT 650 mg amLODIPine (NORVASC) tablet 5 mg Given 03/20/2013 8:37 EDT 5 mg 5 mg, oral, DAILY, First dose on Fri03/20/13 at 0900, Until Discontinued, Routine ascorbic acid (VITAMIN C) tablet 500 mg Given 03/19/2013 22:16 EDT 500 mg 500 mg, oral, AT BEDTIME, First dose on Fri03/19/13 at 2115, Until Discontinued, Routine, On Unit aspirin EC tablet 650 mg Given 03/19/2013 22:31 EDT 650 mg 650 mg, oral, ONCE, 1 dose, Starting on Fri03/19/13 at 2100, Until Fri03/19/13 at 2231, Routine, On Unit aspirin tablet 325 mg Given 03/20/2013 8:40 EDT 325 mg 325 mg, oral, 2 TIMES DAILY, 12 doses, First dose on Fri03/20/13 at 0900, Last dose on Heike 03/25/13 at 2100, Routine ceFAZolin (ANCEF) 1,000 mg in sodium chloride Given 8:41 EDT 1,000 mg 0.9 % 50 mL IVPB 1,000 mg, intravenous, Administer over 30 Minutes, EVERY 8 HOURS, 3 doses, First dose on Fri03/19/13 at 1815, Last dose on Fri03/20/13 at 0800, Routine, On Unit Given 03/19/2013 23:10 EDT 1,000 mg Given 03/19/2013 18:09 EDT 1,000 mg ceFAZolin (ANCEF) syringe 2 g Given by Other 03/19/2013 13:21 EDT 2 g 2 g, intravenous, Administer over 10 Minutes, PRE-OP ONCE, 1 dose, On Fri03/19/13 at 1230, Routine, Pre Op Day of Surgery celecoxib (CELEBREX) capsule 100 mg Given 03/20/2013 8:39 EDT 100 mg 100 mg, oral, 2 TIMES DAILY, First dose on Fri03/19/13 at 2100, Until Discontinued, Routine, On Unit Given 03/19/2013 22:16 EDT 100 mg Cholecalciferol (Vitamin D3) tablet 400 Given 03/19/2013 22:15 E DT 400 Units Units 400 Units, oral, AT BEDTIME, First dose on Fri03/19/13 at 2115, Until Discontinued, Routine, On Unit cloNIDine (CATAPRES) tablet 0.1 mg Given 03/19/2013 22:18 EDT 0.1 mg 0.1 mg, oral, AT BEDTIME, First dose on Fri03/19/13 at 2115, Until Discontinued, Routine dextrose 5 %-0.9 % sodium chloride infus ion New Bag 03/19/2013 18:05 EDT 75 mL/hr at 75 mL/hr, intravenous, CONTINUOUS, Starting on Fri03/19/13 at 1815, Until Fri03/19/13 at 2319, Routine, On Unit docusate sodium (COLACE) capsule 200 mg Given 03/20/2013 8:42 EDT 200 mg 200 mg, oral, 2 TIMES DAILY, First dose on Fri03/19/13 at 2115, Until Discontinued, Routine, On Unit Given 03/19/2013 22:15 EDT 200 mg famotidine (PEPCID) tablet 40 mg Given 03/20/2013 8:37 EDT 40 mg 40 mg, oral, DAILY, First dose on 03/20/13 at 0900, Until Discontinued, Routine fentaNYL citrate (PF) 50 mcg/mL injection Given 03/19/2013 18:28 EDT 25 mcg 25-100 mcg 25-100 mcg, intravenous, EVERY 5 MIN PRN, Starting on Fri03/19/13 at 1640, Until Fri03/19/13 at 2001, Pain, Routine, Recovery (only) hydrochlorothiazide (HYDRODIURIL) tablet 25 mg Given 03/20/2013 8:40 EDT 25 mg 25 mg, oral, DAILY, First dose on 03/20/13 at 0900, Until Discontinued, Routine lactated ringers (LR) infusion New Bag 03/19/2013 12:22 EDT 25 mL/hr at 25 mL/hr, intravenous, CONTINUOUS, Starting on Fri03/19/13 at 1230, Until Fri03/19/13 at 1450, Routine, Pre Op Day of Surgery lactated ringers (LR) infusion Rate Documented 03/19/2013 16:50 EDT 150 mL/hr at 150 mL/hr, intravenous, CONTINUOUS, Starting on Fri03/19/13 at 1700, Until Fri03/19/13 at 2001, Routine, Recovery (only) lisinopril (PRINIVIL, ZESTRIL) tablet 20 mg Given 03/20/2013 8:39 EDT 20 mg 20 mg, oral, DAILY, First dose on 03/20/13 at 0900, Until Discontinued, Routine methocarbamol (ROBAXIN) tablet 500-1,000 mg Given 03/20/2013 8:37 EDT 500 mg 500-1,000 mg, oral, EVERY 6 HOURS PRN, Starting on Fri03/19/13 at 2048, Until 03/20/13 at 1602, muscle spasms, Routine, On Unit Multivitamins with Minerals tablet 1 Tab Given 03/19/2013 22:16 EDT 1 Tablet 1 Tablet, oral, AT BEDTIME, First dose on Fri03/19/13 at 2115, Until Discontinued, Routine, On Unit naproxen (NAPROSYN) tablet 500 mg Given 03/19/2013 12:22 EDT 500 mg 500 mg, oral, PRE-OP ONCE, 1 dose, On Fri03/19/13 at 1230, Routine, Pre Op Day of Surgery oxyCODONE (OXYCONTIN) CR tablet 10 mg Given 03/19/2013 12:21 EDT 10 mg 10 mg, oral, PRE-OP ONCE, 1 dose, On Fri03/19/13 at 1230, Routine, Pre Op Day of Surgery oxyCODONE (ROXICODONE) immediate release tablet Given 2012 8:35 EDT 10 mg 5-15 mg 5-15 mg, oral, EVERY 4 HOURS PRN, Starting on Fri03/19/13 at 1825, Until 03/20/13 at 1602, Pain, Routine, On Unit Given 03/19/2013 18:27 EDT 10 mg pregabalin (LYRICA) capsule 100 mg Given 03/19/2013 12:22 EDT 100 mg 100 mg, oral, PRE-OP ONCE, 1 dose, On Fri03/19/13 at 1230, Routine, Pre Op Day of Surgery senna (SENOKOT) tablet 2 Tab Given 03/19/2013 22:15 EDT 2 Tablets 2 Tablet, oral, 2 TIMES DAILY, First dose on Fri03/19/13 at 2115, Until Discontinued, Routine, On Unit zinc sulfate (ZINCATE) capsule 220 mg Given 03/19/2013 22:16 EDT 220 mg 220 mg, oral, AT BEDTIME, First dose on Fri03/19/13 at 2115, Until Discontinued, Routine, On Unit documented in this encounter Discontinued Medications Medication Sig Discontinue Reason Start Date End Date lithium (LITHOBID) 300 Take 600 mg by Allergic reaction 02/24/2013 mg CR tablet mouth at bedtime. 5 tab at hs ziprasidone (GEODON) 20 Take 20 mg by Therapy completed 02/24/2013 mg capsule mouth at bedtime. 5 tab at hs lisinopril-hydrochlorot Take 1 Tab by Error 11/2012 hiazide (ZESTORETIC) mouth daily. 20-25 mg per tablet eszopiclone (LUNESTA) 3 Take 3 mg by Patient Stopped Taking 2013 mg Tab mouth daily. documented as of this encounter Historical Medications This list may reflect changes made after this encounter. Medication Sig Dispensed Refills Start Date End Date lisinopril-hydrochlorothi Take 1 Tab by mouth 0 azide (PRINZIDE, daily. ZESTORETIC) 20-25 mg per tablet cloNIDine (CATAPRES) 0.1 Take 0.1 mg by mouth at bedtime 1-2 tab at h s prn. 0 mg tablet EPINEPHrine (EPIPEN) 0.3 Inject 0.3 mg into 0 mg/0.3 mL (1:1,000) the muscle once as injection needed. UNABLE TO FIND Take 1 Tab by mouth. 0 08/10/2013 Calcium: ? dosage MULTIVITAMIN (MULTI-DAY Take by mouth daily. 0 08/10/2013 ORAL) melatonin 3 mg tablet Take 1 Tab by mouth 0 08/10/2013 daily. At dinner time ziprasidone (GEODON) 20 Take 20 mg by mouth 0 02/24/2013 mg capsule at bedtime. 5 tab at hs lithium (LITHOBID) 300 mg Take 600 mg by mouth 0 02/24/2013 CR tablet at bedtime. 5 tab at hs added in this encounter Active and Recently Administered Medications Times are shown in EDT. Scheduled Medication Order 03/18/2013 03/19/2013 03/20/2013 acetaminophen (OFIRMEV) IV solution 1,000 mg (COMPLETED) 1445 (Given by Other - Provider: Danitza Hall - Comment: Administered by anesthesia) 1,000 mg, intravenous, NOW X1, 1 dose, F ri 03/19/13 at 1515, Is the patient NPO? If No, state reason why oral acetaminophen cannot be used in Comment field. Yes, Is this patient nothing by rectum? If N o, state why rectal acetaminophen cannot be used in the Comment field. Yes, Are NSAIDs contraindicated in this patient? No, Routine acetaminophen (TYLENOL) tablet 1,000 mg (COMPLETED) 1221 (Given - Provider: Sheila Grove RN) 1,000 mg, oral, PRE-OP ONCE, 1 dose, Fri03/19/13 at 1230, Routin e acetaminophen (TYLENOL) tablet 650 mg 2311 (Give n - Provider: Johana Boyer RN) 0620 (Given - Provider: Johana Boyer RN) 650 mg, oral, EVERY 6 HOURS, First dose on 03/20/13 at 0000, Until Discontinued, Routine amLODIPine (NORVASC) tablet 5 mg (CANCELED) 0837 (Given - Provider: Donavon Aguillon LPN) 5 mg, oral, DAILY, First dose on 03/01 at 0900, Until Discontinued, Routine ascorbic acid (VITAMIN C) tablet 500 mg (CANCELED) 2216 (Given - Provider: Johana Boyer RN) 0838 (Canceled Entry - Provider: Cayden Aguillon LPN) 500 mg, oral, AT BEDTIME, First dose on Fri03/19/13 at 2115, Until Discontinued, Routine aspirin EC tablet 650 mg (COMPLETED) 2231 (Given - Provider: Johana Boyer RN) 650 mg, oral, ONCE, 1 dose, First dose on Fri03/19/13 at 2100, R outine aspirin tablet 325 mg 0840 (Give n - Provider: Johana Aguillon LPN) 325 mg, oral, 2 TIMES DAILY, 12 doses, F irst dose on 03/20/13 at 0900, Last dose on Heike 03/25/13 at 2100, Routine ceFAZolin (ANCEF) 1,000 mg in sodium chloride 0.9 % 50 mL IV PB (COMPLETED) 180 (Given - Provider: Faith Barcenas RN)231 (Given - Provider: Johana Boyer RN) 0841 (Given - Provider: Johana alston LPN) 1,000 mg, intravenous, for 30 Minutes, E VERY 8 HOURS, 3 doses, First dose on Fri03/19/13 at 1815, Last dose on Fri03/20/13 at 0800, Routine ceFAZolin (ANCEF) syringe 2 g (COMPLETED) 1321 (Given by Other - Provider: Danitza Hall - Comment: administered by anesthesia) 2 g, intravenous, for 10 Minutes, PRE-OP ONCE, 1 dose, Fri03/19/13 at 1230, Routine celecoxib (CELEBREX) capsule 100 mg (CANCELED) 2215 (Given - Provider: Johana Boyer RN) 0839 (Given - Provider: Johana alston LPN) 100 mg, oral, 2 TIMES DAILY, First dose on Fri03/19/13 at 2100, Until Discontinued, Routine Cholecalciferol (Vitamin D3) tablet 400 Units (CANCELED) 2214 (Given - Provider: Johana Boyer RN) 400 Units, oral, AT BEDTIME, First dose on Fri03/19/13 at 2115, Until Discontinued, Routine cloNIDine (CATAPRES) tablet 0.1 mg (CANCELED) 2217 (Given - Provider: Johana Boyer RN) 0.1 mg, oral, AT BEDTIME, First dose on Fri03/19/13 at 2115, Until Discontinued, Routine docusate sodium (COLACE) capsule 200 mg 2214 (Given - Provider: Johana Boyer RN) 0842 (Given - Provider: Johana alston LPN) 200 mg, oral, 2 TIMES DAILY, First dose on Fri03/19/13 at 2115, Until Discontinued, Routine famotidine (PEPCID) tablet 40 mg (CANCELED) 0837 (Given - Provider: Donavon Aguillon LPN) 40 mg, oral, DAILY, First dose on Fri at 0900, Until Discontinued, Routine hydrochlorothiazide (HYDRODIURIL) tablet 25 mg (CANCELED) 0840 (Given - Provider: Johana Aguillon LPN) 25 mg, oral, DAILY, First dose on Sat at 0900, Until Discontinued, Routine lisinopril (PRINIVIL, ZESTRIL) tablet 20 mg (CANCELED) 0839 (Given - Provider: Johana Aguillon LPN) 20 mg, oral, DAILY, First dose on Sat at 0900, Until Discontinued, Routine Multivitamins with Minerals tablet 1 Tab (CANCELED) 221 (Given - Provider: Johana Boyer RN) 1 Tab, oral, AT BEDTIME, First dose on F 03/19/13 at 2115, Until Discontinued, Routine naproxen (NAPROSYN) tablet 500 mg (COMPLETED) 1222 (Given - Provider: Sheila Grove RN) 500 mg, oral, PRE-OP ONCE, 1 dose, Fri03/19/13 at 1230, Routine oxyCODONE (OXYCONTIN) CR tablet 10 mg (COMPLETED) 1221 (Given - Provider: Sheila Grove RN) 10 mg, oral, PRE-OP ONCE, 1 dose, Fri03/19/13 at 1230, Routine pregabalin (LYRICA) capsule 100 mg (COMPLETED) 1222 (Given - Provider: Sheila Grove RN) 100 mg, oral, PRE-OP ONCE, 1 dose, Fri03/19/13 at 1230, Routine senna (SENOKOT) tablet 2 Tab (CANCELED) 221 (Given - Provider: Johana Boyer RN) 0843 (Not Given - Provider: Johana Aguillon LPN - Reason: Patient/family refused) 2 Tab, oral, 2 TIMES DAILY, First dose o n Fri03/19/13 at 2115, Until Discontinued, Routine zinc sulfate (ZINCATE) capsule 220 mg (CANCELED) 221 (Given - Provider: Johana Boyer RN) 220 mg, oral, AT BEDTIME, First dose on Fri03/19/13 at 2115, Until Discontinued, Routine Continuous Medication Order 03/18/2013 03/19/2013 03/20/2013 dextrose 5 %-0.9 % sodium chloride infusion (CANCELED) 1805 (New Bag - Provider: Faith Barcenas RN) at 75 mL/hr, intravenous, CONTINUOUS, St arting Fri03/19/13 at 1815, Until Fri03/19/13 at 2319, Routine lactated ringers (LR) infusion (CANCELED) 1222 (New Bag - Provider: Sheila Grove RN)1650 (Completed - Provider: Faith Barcenas RN) at 25 mL/hr, intravenous, CONTINUOUS, St arting Fri03/19/13 at 1230, Until Fri03/19/13 at 1450, Routine lactated ringers (LR) infusion (CANCELED) 1650 (Rate Documented - Provider: Faith Barcenas RN)1804 (Completed - Provider: Faith Barcenas RN) at 150 mL/hr, intravenous, CONTINUOUS, S tarting Fri03/19/13 at 1700, Until Fri03/19/13 at 2001, Routine PRN Medication Order 03/18/2013 03/19/2013 03/20/2013 fentaNYL citrate (PF) 50 mcg/mL injection 25-100 mcg (CANCEL ED) 1828 (Given - Provider: Faith Barcenas RN) 25-100 mcg, intravenous, EVERY 5 MIN PRN , Starting Fri03/19/13 at 1640, Until Fri03/19/13 at 2001, Pain, Routine methocarbamol (ROBAXIN) tablet 500-1,000 mg 0837 (Given - Provider: Donavon Aguillon LPN) 500-1,000 mg, oral, EVERY 6 HOURS PRN, S tarting Fri03/19/13 at 2048, Until 03/20/13 at 1602, muscle spasms, Routine oxyCODONE (ROXICODONE) immediate release tablet 5-15 mg 1827 (Given - Provider: Faith Barcenas RN) 0835 (Given - Provider: Johana alston LPN) 5-15 mg, oral, EVERY 4 HOURS PRN, Starti ng Fri03/19/13 at 1825, Until 03/20/13 at 1602, Pain, Routine documented in this encounter Orders Medications Ordered That Might Not Have Count Last Ord ered Date First Ordered Date Been Administered atropine 0.4 mg 1 03/19/2013 diphenhydrAMINE (BENADRYL) injection 1 03/19/2013 12.5-25 mg diphenhydrAMINE (BENADRYL) injection 6.25 1 2012 mg HYDROmorphone (PF) (DILAUDID) 1 mg/mL 1 03/19/2013 injection 0.2-1 mg lithium (LITHOBID) SR tablet 600 mg 1 03/19/2013 magnesium hydroxide (MILK OF MAGNESIA) 400 2 03/19 mg/5 mL suspension 30 mL meperidine (PF) (DEMEROL) 25 mg/0.5 mL 1 3 injection 25 mg nalOXone (NARCAN) injection 0.2 mg 1 03/19/2013 oxyCODONE (ROXICODONE) 5 mg immediate 1 03/19/2013 release tablet ziprasidone (GEODON) capsule 20 mg 1 03/19/2013 zolpidem (AMBIEN) tablet 5 mg 1 03/19/2013 Nursing Count Last Ordered Date First Ordered Date APPLY WARMING BLANKET 1 03/19/[address] PL[address] SEQUENTIAL COMPRESSION DEVICE 1 03/19/2013 VTE PHARMACOLOGIC PROPHYLAXIS CURRENTLY 1 03/19/20 13 ORDERED OR ON ALTERNATIVE THER PT Count Last Ordered Date First Ordered Date PT EVALUATION AND TREAT 2 03/20/2013 03/19/20 13 IV Count Last Ordered Date First Ordered Date IV REQUEST 1 03/20/2013 Admission Count Last Ordered Date First Ordered Date STATUS: INPATIENT POST-PROCEDURE ADMISSION 1 03/19 UPGRADE STATUS: OUTPATIENT SURGICAL OP 1 03/19/2013 BED/SERVICES Transfer Count Last Ordered Date First Ordered Date NOTIFY PPS OF DISCHARGE COMPLETE 1 03/20/2013 NOTIFY PPS PATIENT ARRIVAL IN PACU 1 03/19/2013 NOTIFY PPS PATIENT TRANSFERRED OUT OF PACU 1 03/19 TRANSFER PATIENT 1 03/19/2013 Discharge Count Last Ordered Date First Ordered Date DISCHARGE PATIENT 2 03/20/2013 documented in this encounter Care Teams Wire Hanger Relationship Specialty Start Date End Date Jelly Ivy MD PCP - General 04/29/[address] [address] documented as of this encounter
--- OUTSIDE RECORDS SUMMARY | 2022-01-10 09:40 | XMS_ITS | Encounter Summary ---
:1980 Author Organization [facility] Address [address] [place] [address] Care Team Providers Name Role Phone Jelly Ivy MD Primary Care Provider Reason for Visit Reason Comments Appointment Related Encounter Details Date Type Department Care Team Description 02/22/2013 Telephone [facility] Tonny Chand LPN Appointment Related Sports Medicine [address] [facility] Program [place] [address] [facility] [address] [place], [place] [id number] Social History Tobacco Use Types Packs/Day Years Used Date Current Every Day Smoker Alcohol Use Standard Drinks/Week Comments Yes 0 (1 standard drink = 0.6 oz pure alcoho l) Sex Assigned at Date Recorded Not on file documented as of this encounter Miscellaneous Notes Telephone Encounter - Ninoska Chand - 02/24/2013 1401 EDT Slade's surgery needs to be moved from 03/05 to 03/[address] Flores isn't going to be available. DadSlade who is also a caregiver for this patient, is aware; He is seeing his PCP tomorrow and will ask her to do an updated H&P at that time. Dr. Sparks , his behavior therapist who monitors his lithium, is also aware of the date change. elephone Encounter - Ninoska Chand - 02/23/2013 1538 EDT Per Mom, Shruthi, Slade was weighed yesterday at the ER, 337# so she is aware we will proceed w/ his rotator cuff repair on 03/05/13 unless he doesn't pass clearance w/ anesthesia. (He has an onsite w/ anesthesia @ 1300 tomorrow) He was in the ER yesterday w/ elevated lithium levels and going back for repeat levels in the AM. I've asked his provider (Moraima Scott) to send us a copy of his levels. . elephone Encounter - Ninoska Chand - 02/22/2013 1346 EDT Shruthi, mom, calling to state they're in the ER @ [facility] because of an elevated lithium level and will miss his 1300 appt w/ anesthesia on site. Called preop and changed appt to 02/24 @ 1300. Also confirmed w/ [facility] OR that patient needs to be < 350# since the table won't hold this patient otherwise. As per Dr. Flores, he needs to be down to 340# when weighed by anesthesia, or we'll have to reschedule. documented in this encounter Plan of Treatment Not on filedocumented as of this encounter Visit Diagnoses Not on filedocumented in this encounter Care Teams Civil Engineer Land Development Relationship Specialty Start Date End Date Jelly Ivy MD PCP - General 04/29/[address] [address] documented as of this encounter
--- OUTSIDE RECORDS SUMMARY | 2022-01-10 09:40 | XMS_ITS | Encounter Summary ---
:1980 Author Organization [facility] Address [address] [place] [address] Care Team Providers Name Role Phone Jelly Ivy MD Primary Care Provider Reason for Visit Reason Onset Date Comments Pre-op Exam 03/19/2013 Encounter Details Date Type Department Care Team Description 03/19/2013 Telephone [facility] Sports Medicine Gokul Roman, GIANFRANCO Pre-op Exam Program - [address] [place], [place] [address] Social History Tobacco Use Types Packs/Day Years Used Date Current Every Day Smoker Alcohol Use Standard Drinks/Week Comments Yes 0 (1 standard drink = 0.6 oz pure alcoho l) Sex Assigned at Date Recorded Not on file documented as of this encounter Miscellaneous Notes Telephone Encounter - Gokul Roman RN - 03/19/2013 1206 EDT Called patient on 03/18/13 and left message to be at [facility] for his scheduled surgery on 03/19/[address] Flores. Patient hasn't returned my calls, and had been in contact with Ninoska Chand LPN. His surgery was also going to possibly be moved sooner if the schedule allowed at which time patient would be contacted by preop. Followed up again today, 03/19/13 with no response. Gokul Roman RN 03/19/2013 12:10 documented in this encounter Plan of Treatment Not on filedocumented as of this encounter Visit Diagnoses Not on filedocumented in this encounter Care Teams Postbed Stitcher Relationship Specialty Start Date End Date Jelly Ivy MD PCP - General 04/29/[address] [address] documented as of this encounter
--- OUTSIDE RECORDS SUMMARY | 2022-01-10 09:40 | XMS_ITS | Encounter Summary ---
:[address] [facility] Address [address] [place] [address] Care Team Providers Name Role Phone Jelly Ivy MD Primary Care Provider Reason for Visit Reason Onset Date Comments Smoking Cessation 01/28/2013 Encounter Details Date Type Department Care Team Description 01/28/2013 Orders Only [facility] Gokul Roman RN Rotat or cuff (capsule) Sports Medicine Program spra in and strain - Rody (Primary Dx) [address] [place], [place] [address] Social History Tobacco Use [...] Primary documented in this encounter Care Teams Extruder Operator Helper Relationship Specialty Start Date End Date Jelly Ivy MD PCP - General 04/29/[address] [address] documented as of this encounter
--- OUTSIDE RECORDS SUMMARY | 2022-01-10 09:40 | XMS_ITS | Encounter Summary ---
:1980 Author Organization [facility] Address [address] [place] [address] Care Team Providers Name Role Phone Jelly Ivy MD Primary Care Provider Encounter Details Date Type Department Care Team Description 03/15/2013 Community Health Team [facility] Gokul Roman, RN Sports Medicine Program - [place] [address] [address] [place], [place] [address] Social History Tobacco Use [...] on filedocumented in this encounter Care Teams Trauma Therapist Relationship Specialty Start Date End Date Jelly Ivy MD PCP - General 04/29/[address] [id number] documented as of this encounter
--- OUTSIDE RECORDS SUMMARY | 2022-01-10 09:40 | XMS_ITS | Encounter Summary ---
:1980 Author Organization [facility] Address [address] [place] [address] Care Team Providers Name Role Phone Jelly Ivy MD Primary Care Provider Reason for Visit Reason Comments Shoulder Pain right shoulder pain Encounter Details Date Type Department Care Team Description 05/05/2012 Office Visit [place] Cristhian Fairchild or cuff tear Sports Medicine MD Isabel (Primary Dx) Program - [address] [address] Social History Tobacco Use Types Packs/Day Years Used Date Never Assessed Sex Assigned at Date Recorded Not on file documented as of this encounter Last Filed Vital Signs Vital Sign Reading Time Taken Comments Blood Pressure - - Pulse - - Temperature - - Respiratory Rate - - Oxygen Saturation - - Inhaled Oxygen Concentration - - Weight 170.1 kg (375 lb) 05/05/2012 1348 EST Height 182.9 cm (6') 05/05/2012 1348 EST Body Mass Index 50.86 05/05/2012 1348 EST documented in this encounter Discharge Disposition Disposition Code Departure Means Destination Auto Discharge documented in this encounter Progress Notes Cristhian Fairchild - 05/05/2012 1330 EST This office note has been dictated. documented in this encounter Consult Notes Cristhian Fairchild - 05/06/2012 0855 EST Sports Medicine Service [facility] [address] [place] [address] CONSULTATION - 05/05/2012 PROBLEM: Right shoulder pain. SUBJECTIVE: The patient is a 32-year-old male who is unemployed. He is seen in consultation for Gi Hanks PA-C in [place]. He began experiencing pain in his right shoulder in 2009 when he had a furnace fall on top of him from a truck. Subsequently, he slipped and fell down an embankment into a pond and struck some rocks. The result of these injuries has been constant pain at the superior and lateral aspect of his shoulder with weakness and limitation in his ability to use his arm. He feels that the pain travels down the lateral aspect of his upper arm, but he has no radiation to his hand or other neurologic symptoms. He denies significant crepitus. He has gone to physical therapy, which hasnot been helpful. He has also had what sounds like a subacromial injection with a corticosteroid, which also does not help. He had a home exercise program, but he has gradually discontinued that over the course of the past year. He saw Ms Hanks early in 2011 and then for a followup visit on 04/16/12. By that time, he had obtained an MRI study at [facility] in [place]. This showed a full-thickness tear of the supraspinatus with a mild amount of retraction. He apparently has been told that surgery would be indicated for his problem, and he and his father state that by somewhat of a circuitous route he has ended up here at [facility] to pursue this. His medical history is significant for morbid obesity, high blood pressure and sleep apnea. The remainder of his review of systems, past medical, family and social history is recorded on the intake sheet and in [facility]. ALLERGIES: He has no known allergies. OBJECTIVE: The patient is a well-developed, well-nourished male in no acute distress. He is pleasantand cooperative. He is oriented x3. He breathes primarily through his mouth. His height is 6 feet 0 inches and his weight is 375 pounds. Inspection of the right shoulder reveals no obvious asymmetry or deformity. Range of motion of the cervical spine is symmetrical and pain free. Today, active flexion is 100, abduction is 80, limited bypain and associated with scapular substitution. With the arm stabilize at 90 degrees of abduction, ex ternal rotation is 80 and internal rotation is limited to 15. There is no obvious laxity on load andshift or sulcus sign. Palpation reveals tenderness at the greater tuberosity. There is also minimal tenderness at the AC joint. The clavicle and scapula are nontender. On strength testing, he has pain and weakness on resisted scapular abduction. External rotation is symmetrical but painful. Internal rotation is symmetrical. Lift off could not be performed. Speeds andYergason's are negative. Sensation to light touch is intact in the axillary and musculocutaneous nerve distributions in all fingertips. Motor function of the forearm, wrist and hand is grossly intact. The radial pulse is 2+. The patient brought a disk with the images from his MRI study of 04/02/12. The image quality is rather lacking, but a full-thickness tear of the supraspinatus can be seen with retraction to the humeral head. There is some mild degenerative change at the AC joint. The remainder of the study is unremarkable. ASSESSMENT: Full-thickness supraspinatus tear as described above. PLAN: The situation was discussed in detail with the patient and his father. I also reviewed his case with Dr Flores. Dr Flores states that he would be happy to consult with the patient regarding surgical repair of the supraspinatus. One concern might be the location of surgery, since because of his weight, he may not be able to be accommodated at the outpatient surgical suite at [facility]. An appointment will be made for consultation in the near future. Electronically Signed by Cristhian Fairchild MD 05/08/2012 07:44 Cristhian Fairchild MD - Cristhian Fairchild MD - BOBBIN DUMPER Job ID: SM Doc ID: [id number] Ext Doc ID: [id number] cc: documented in this encounter Plan of Treatment Not on filedocumented as of this encounter Visit Diagnoses Diagnosis Rotator cuff tear - Primary Rotator cuff (capsule) sprain documented in this encounter Care Teams Aquatic Facility Manager Relationship Specialty Start Date End Date Jelly Ivy MD PCP - General 04/29/12 [place] [address] documented as of this encounter
--- OUTSIDE RECORDS SUMMARY | 2022-01-10 09:40 | XMS_ITS | Encounter Summary ---
:1980 Author Organization [facility] Address [address] [place] [address] Care Team Providers Name Role Phone Jelly Ivy MD Primary Care Provider Encounter Details Date Type Department Care Team Description 05/08/2012 Abstract [facility] Krystle Escalera MD Medicine Program - [address] [place], [place] [address] Social History Tobacco Use [...] on filedocumented in this encounter Care Teams Grease Machine Worker Relationship Specialty Start Date End Date Jelly Ivy MD PCP - General 04/29/[address] [id number] documented as of this encounter
--- OUTSIDE RECORDS SUMMARY | 2022-01-10 09:40 | XMS_ITS | Encounter Summary ---
:1980 Author Organization [facility] Address [address] [place] [address] Care Team Providers Name Role Phone Jelly Ivy MD Primary Care Provider Reason for Visit Reason Comments Other Encounter Details Date Type Department Care Team Description 03/12/2013 Telephone [facility] Sports Ninoska Barrow LPN Other Medicine Program - [address] [place] [address] [place] [address] Social History Tobacco Use Types Packs/Day Years Used Date Current Every Day Smoker Alcohol Use Standard Drinks/Week Comments Yes 0 (1 standard drink = 0.6 oz pure alcoho l) Sex Assigned at Date Recorded Not on file documented as of this encounter Miscellaneous Notes Telephone Encounter - Ninoska Chand - 03/12/2013 1343 EDT Per 's office from his H&P today, weight is 341#. Spoke w/ 's office (therapist) who is seeing patient 03/16 and requested she send note w/ medications and clearance from herperspective. documented in this encounter Plan of Treatment Not on filedocumented as of this encounter Visit Diagnoses Not on filedocumented in this encounter Care Teams Optimization Analyst Relationship Specialty Start Date End Date Jelly Ivy MD PCP - General 04/29/[address] [address] (work) documented as of this encounter
--- OUTSIDE RECORDS SUMMARY | 2022-01-10 09:40 | XMS_ITS | Encounter Summary ---
:1980 Author Organization [facility] Address [address] [place] [address] Care Team Providers Name Role Phone Jelly Iyv MD Primary Care Provider Encounter Details Date Type Department Care Team Description 05/05/2012 Results Only Imaging [facility]- Unknown, [facility] ProviderMD [phone] Social History Tobacco Use Types Packs/Day Years Used Date Never Assessed Sex Assigned at Date Recorded Not on file documented as of this encounter Plan of Treatment Pending Results Name Type Priority Associated Diagnoses Date/Ti me OUTSIDE CD - [facility] 012 19:46 EST documented as of this encounter Visit Diagnoses Not on filedocumented in this encounter Care Teams Administrative Office Manager Relationship Specialty Start Date End Date Jelly Ivy MD PCP - General 04/29/[address] [id number] documented as of this encounter
--- OUTSIDE RECORDS SUMMARY | 2022-01-10 09:40 | XMS_ITS | Encounter Summary ---
:1980 Author Organization [facility] Address [address] [place] [address] Care Team Providers Name Role Phone Jelly Ivy MD Primary Care Provider Encounter Details Date Type Department Care Team Description 12/22/2012 Hospital Encounter [facility] - Unknown, Provider, [facility] Joaquín Flores MD [address] [facility] [address] [place] [address], [place] [address] [address] [place], [place] [id number] Social History Tobacco Use Types Packs/Day Years Used Date Current Every Day Smoker Alcohol Use Standard Drinks/Week Comments Yes 0 (1 standard drink = 0.6 oz pure alcoho l) Sex Assigned at Date Recorded Not on file documented as of this encounter Medications at Time of Discharge Medication Sig Dispensed Refills Start Date End Date amlodipine (NORVASC) 5 mg Take 5 mg by mouth 0 tablet daily. famotidine (PEPCID) 40 mg Take 40 mg by mouth 0 tablet daily as needed. eszopiclone (LUNESTA) 3 mg Take 3 mg by mouth 0 2013 Tab daily. lisinopril-hydrochlorothia Take 1 Tab by mouth 0 2013 zide (ZESTORETIC) 20-25 mg daily. per tablet documented as of this encounter Discharge Disposition Disposition Code Departure Means Destination Auto Discharge Home documented in this encounter Plan of Treatment Not on filedocumented as of this encounter Visit Diagnoses Not on filedocumented in this encounter Care Teams Gardening Manager Relationship Specialty Start Date End Date Jelly Ivy MD PCP - General 04/29/[address] [address] documented as of this encounter
--- OUTSIDE RECORDS SUMMARY | 2022-01-10 09:40 | XMS_ITS | Encounter Summary ---
:1980 Author Organization [facility] Address [address] [place] [address] Care Team Providers Name Role Phone Jelly Ivy MD Primary Care Provider Encounter Details Date Type Department Care Team Description 12/22/2012 Phlebotomy Only [facility] - Patient Relations Coordinator, Rot ator cuff tear [facility] [place] [address] [place], [place] [address] Social History Tobacco Use Types Packs/Day Years Used Date Current Every Day Smoker Alcohol Use Standard Drinks/Week Comments Yes 0 (1 standard drink = 0.6 oz pure alcoho l) Sex Assigned at Date Recorded Not on file documented as of this encounter Plan of Treatment Not on filedocumented as of this encounter Procedures Procedure Name Priority Date/Time Associated Diagnosis Comme nts CARBOXYHEMOGLOBIN Routine 12/22/2012 14:28 Rotator cuff tear R esults for this EDT procedure are i n the results section. documented in this encounter Results CARBOXYHEMOGLOBIN (12/22/2012 14:28 EDT) Pathologist Sig nature Carboxyhemoglobin 3.0 % [facility] Comment: Reference Range: Non smokers <5% Smokers <10% Specimen Blood specimen (specimen) Performing Organization Address City/State/ZIP Code Phon e Number [facility] [address] [place] [address] [facility] [address] [place] [address] documented in this encounter Visit Diagnoses Diagnosis Rotator cuff tear Rotator cuff (capsule) sprain documented in this encounter Care Teams Ignition Expert Relationship Specialty Start Date End Date Jelly Ivy MD PCP - General 04/29/[address] [address] documented as of this encounter
--- OUTSIDE RECORDS SUMMARY | 2022-01-10 09:40 | XMS_ITS | Encounter Summary ---
:1980 Author Organization [facility] Address [address] [place] [address] Care Team Providers Name Role Phone Jelly Ivy MD Primary Care Provider Reason for Visit Reason Onset Date Comments Procedure 02/04/2013 Encounter Details Date Type Department Care Team Description 02/04/2013 Pre-Procedure [facility] Gokul Roman, Rotator cuff Orders Encounter Sports Medicine RN (capsule ) sprain and Program - Rody strain (Primary Dx) [address] [place] [address] Social History Tobacco Use Types [...] Primary documented in this encounter Care Teams Benefits Sales Consultant Relationship Specialty Start Date End Date Jelly Ivy MD PCP - General 04/29/12 [facility] [address] [address] documented as of this encounter
--- OUTSIDE RECORDS SUMMARY | 2022-01-10 09:40 | XMS_ITS | Encounter Summary ---
:1980 Author Organization [facility] Address [address] [place] [address] Care Team Providers Name Role Phone Jelly Ivy MD Primary Care Provider Reason for Visit Reason Comments Shoulder Pain Right Encounter Details Date Type Department Care Team Description 12/22/2012 Office Visit [facility] [place], Rotator c uff tear Sports Medicine Joaquín Conde MD (Primary Dx) Program - [address] [facility], [place] [phone] Social History Tobacco Use Types Packs/Day [...] - Inhaled Oxygen Concentration - - Weight 156.9 kg (346 lb) 12/22/2012 1319 EDT Height 182.9 cm (6') 12/22/2012 1319 EDT Body Mass Index 46.93 12/22/2012 1319 EDT documented in this encounter Progress Notes Gokul Roman RN - 01/04/2013 1509 EDT Patient Education Topic: RIGHT SHOULDER SCOPE RTC REPAIR, SAD DOS 02/24/13 Method: Handout and Verbal Taught to: Patient Barriers: None Outcomes: independent and verbalized understanding Signature:Gokul Roman RN 12/22/12 1315 Joaquín Cheney MD - 12/22/2012 6489 EDT SUBJECTIVE: This is a 32-year-old male who comes in with his father today. He has significant right shoulder pain. He has been seen in the past. He has a rotator cuff tear. He weighed about 375 and wastoo large for the table. He had to lose weight and stop smoking. He has done both. He is a little irritated that he has had to lose weight and stop smoking in order to have surgery. He just wants to have it fixed; however, he states that he has done both and he is ready to proceed. He has movement in his arm generally fairly well. He does not want to shake hands too much because that does shake his shoulder a little bit, which does cause him pain. He does have some weakness with overhead activity. PAST MEDICAL HISTORY: Significant for high blood pressure, asthma, anxiety, depression, obesity. MEDICAL HISTORY: Obesity. REVIEW OF SYSTEMS: No other orthopaedic concerns. OBJECTIVE: Observation: A very obese patient. Shoulder is generally tender all the way down to his and in the anterior aspect of his shoulder. Range of motion: Is 0 to about 160 degrees forward flexion, abduction 160, internal rotation across chest, external rotation to about 45 degrees. Strength: Internal rotation, very strong external rotation, slightly weak supraspinatus weaker than the other side. MRI was re-reviewed and shows a supraspinatus tear. ASSESSMENT: He states that he has stopped smoking. His weight today on our scale was 347. Since he states that he has stopped smoking and his weight is appropriate, we can proceed with his surgery. He will need to get a weigh in before the date of surgery in our office one week before to make sure he still weighs less than 350 and we will get a carboxyhemoglobin to document that he is ready for surgery. Outside of that, we discussed operative intervention, which involves a shoulder arthroscopy, rotator cuff repair. The procedure, risks, and benefits were explained and he understood and he gave consent to proceed. Complications discussed, therapy discussed, restrictions and the needs for surgery discussed. documented in this encounter Plan of Treatment Not on filedocumented as of this encounter Results CARBOXYHEMOGLOBIN (12/22/2012 14:28 EDT) Pathologist Sig nature Carboxyhemoglobin 3.0 % [facility] Comment: Reference Range: Non smokers <5% Smokers <10% Specimen Blood specimen (specimen) Performing Organization Address City/State/ZIP Code Phon e Number [facility] [address] [place] [address] [facility] [address] [place] [address] documented in this encounter Visit Diagnoses Diagnosis Rotator cuff tear - Primary Rotator cuff (capsule) sprain documented in this encounter Care Teams Life Sciences Instructor Relationship Specialty Start Date End Date Jelly Ivy MD PCP - General 04/29/[address] [address] documented as of this encounter
[2022-01-10 14:40] LABS: HCT 49.1 % (40.0-50.0); HGB 16.1 g/dL (13.5-17.5); MCH 28.8 pg (27.0-33.0); MCHC 32.8 % (32.0-36.0); MCV 88 fL (80-95); Platelet Count 242 10^3/uL (130-400); RBC 5.59 10^6/uL (4.36-5.78); RDW 14.7 % (11.8-14.1); RDW-SD 47.3 fL; WBC 11.59 10^3/uL (4.4-10.8)
[2022-01-10 15:05] LABS: ALT 46 U/L (16-63); AST 29 U/L (15-37); Albumin 3.8 g/dL (3.4-5.0); Alkaline Phosphatase 43 U/L (46-116); Anion Gap 9.2 mmol/L (3-11); BUN 19 mg/dL (7-18); Bilirubin, Total 0.5 mg/dL (0.2-1.0); CO2 29.8 mmol/L (21.0-32.0); CREATININE 1.2 mg/dL (0.70-1.30); Chloride 104 mmol/L (98-107); Glucose 121 mg/dL (74-106); Sodium 143 mmol/L (136-145); TSH (W/Ref FT4) 2.11 uIU/mL (0.36-3.74); Total Protein 7.2 g/dL (6.4-8.2)
[2022-01-10 16:09] LABS: COMMENT (LAB VIEW ONLY) 86.45 mg/dL
[2022-01-10 16:13] LABS: Microalb ug/mg Crea 278.7 ug/mg Cr
== END 2022-01-10 09:35 | disposition home or self-care (01) ==
LOC: NCHCN 09:34
PROVIDERS: PCP Nurse Practitioner Family; Visit Provider Registered Nurse
DX: E66.9 Obesity, unspecified (principal); E11.9 Type 2 diabetes mellitus without complications
CPT/HCPCS: 80053; 85027; 82043; 82570; 83036; 84443

== ENCOUNTER 2022-01-17 15:56 | Outpatient (REF) | payer MEDICARE, MEDICAID, SELFPAY ==
[2022-01-17 16:10] LABS: Anion Gap 9.4 mmol/L (3-11); BUN 11 mg/dL (7-18); CO2 28.6 mmol/L (21.0-32.0); CREATININE 1.1 mg/dL (0.70-1.30); Calcium 9.5 mg/dL (8.5-10.1); Chloride 104 mmol/L (98-107); Glucose 132 mg/dL (74-106); Potassium 3.9 mmol/L (3.5-5.1); Sodium 142 mmol/L (136-145)
== END 2022-01-17 15:57 | disposition home or self-care (01) ==
LOC: NCHCN 15:56
PROVIDERS: PCP Nurse Practitioner Family; Visit Provider Registered Nurse
DX: E87.6 Hypokalemia (principal)
CPT/HCPCS: 80048

== ENCOUNTER 2022-03-06 10:40 | Outpatient (REF) | payer MEDICARE, MEDICAID, SELFPAY ==
[2022-03-06 16:30] LABS: Potassium 3.8 mmol/L (3.5-5.1)
== END 2022-03-06 10:41 | disposition home or self-care (01) ==
LOC: NCHCN 10:40
PROVIDERS: PCP Nurse Practitioner Family; Visit Provider Registered Nurse
DX: E87.6 Hypokalemia (principal)
CPT/HCPCS: 84132

== ENCOUNTER 2022-07-10 14:07 | Outpatient (REF) | payer MEDICARE, MEDICAID, SELFPAY ==
[2022-07-10 14:21] LABS: Abs Immature Grans 0.02 10^3/uL (0.0-0.06); Absolute Basophil Count 0.04 10^3/uL (0.0-0.2); Absolute Eosinophil Count 0.19 10^3/uL (0.0-0.7); Absolute Lymphocyte Count 2.02 10^3/uL (1.2-3.4); Absolute Monocyte Count 0.59 10^3/uL (0.1-0.8); Absolute Neutrophil Count 5.55 10^3/uL (1.2-6.7); Basophils % 0.5; Eosinophils % 2.3; HCT 51.5 % (40.0-50.0); HGB 17.5 g/dL (13.5-17.5); Immature Grans % 0.2; MCH 30.2 pg (27.0-33.0); MCV 89 fL (80-95); Platelet Count 209 10^3/uL (130-400); RBC 5.79 10^6/uL (4.36-5.78); RDW 14.7 % (11.8-14.1); RDW-SD 47.1 fL; WBC 8.41 10^3/uL (4.4-10.8)
[2022-07-10 15:13] LABS: Hemoglobin A1C 5.9 % (<5.7)
== END 2022-07-10 14:08 | disposition home or self-care (01) ==
LOC: NCHCN 14:07
PROVIDERS: PCP Nurse Practitioner Family; Visit Provider Registered Nurse
DX: E11.9 Type 2 diabetes mellitus without complications (principal); L72.3 Sebaceous cyst
CPT/HCPCS: 83036; 85025

== ENCOUNTER 2022-07-24 18:32 | Outpatient (REF) | payer MEDICARE, MEDICAID, SELFPAY ==
[2022-07-24 21:25] LABS: Anion Gap 5.6 mmol/L (3-11); BUN 17 mg/dL (7-18); CO2 34.4 mmol/L (21.0-32.0); CREATININE 1.2 mg/dL (0.70-1.30); Calcium 9.7 mg/dL (8.5-10.1); Chloride 102 mmol/L (98-107); Estimated GFR 76.95 (mL/min/1.73m2); Glucose 129 mg/dL (74-106); Sodium 142 mmol/L (136-145)
[2022-07-24 22:25] LABS: Potassium 2.8 mmol/L (3.5-5.1)
[2022-07-25 10:08] LABS: Magnesium 2.3 mg/dL (1.8-2.4)
== END 2022-07-24 18:33 | disposition home or self-care (01) ==
LOC: NCHCN 18:32
PROVIDERS: PCP Nurse Practitioner Family; Visit Provider Family Medicine
DX: I10 Essential (primary) hypertension (principal)
CPT/HCPCS: 80048; 83735

== ENCOUNTER 2022-07-29 09:20 | Outpatient (REF) | payer MEDICARE, MEDICAID, SELFPAY ==
[2022-07-29 14:42] LABS: Potassium 3.2 mmol/L (3.5-5.1)
== END 2022-07-29 09:21 | disposition home or self-care (01) ==
LOC: NCHCN 09:20
PROVIDERS: PCP Nurse Practitioner Family; Visit Provider Internal Medicine
DX: E87.6 Hypokalemia (principal)
CPT/HCPCS: 84132

== ENCOUNTER 2022-08-02 12:56 | Outpatient (REF) | payer MEDICARE, MEDICAID, SELFPAY ==
[2022-08-02 14:27] LABS: Potassium 3.7 mmol/L (3.5-5.1)
== END 2022-08-02 12:57 | disposition home or self-care (01) ==
LOC: NCHCN 12:56
PROVIDERS: PCP Nurse Practitioner Family; Visit Provider Registered Nurse
DX: I10 Essential (primary) hypertension (principal)
CPT/HCPCS: 84132

== ENCOUNTER 2022-08-21 12:01 | Outpatient (REF) | payer MEDICARE, MEDICAID, SELFPAY ==
[2022-08-21 21:32] LABS: Anion Gap 8.2 mmol/L (3-11); BUN 18 mg/dL (7-18); CO2 29.8 mmol/L (21.0-32.0); CREATININE 1.1 mg/dL (0.70-1.30); Calcium 9.6 mg/dL (8.5-10.1); Chloride 101 mmol/L (98-107); Estimated GFR 85.42 (mL/min/1.73m2); Glucose 190 mg/dL (74-106); Potassium 3.9 mmol/L (3.5-5.1); Sodium 139 mmol/L (136-145)
== END 2022-08-21 12:02 | disposition home or self-care (01) ==
LOC: NCHCN 12:01
PROVIDERS: PCP Nurse Practitioner Family; Visit Provider Registered Nurse
DX: I10 Essential (primary) hypertension (principal)
CPT/HCPCS: 80048

== ENCOUNTER 2022-10-25 21:32 | Outpatient (REF) | payer MEDICARE, MEDICAID, SELFPAY ==
[2022-10-25 21:46] LABS: Anion Gap 13.9 mmol/L (3-11); BUN 17 mg/dL (7-18); CO2 24.1 mmol/L (21.0-32.0); CREATININE 1.4 mg/dL (0.70-1.30); Calcium 9.9 mg/dL (8.5-10.1); Chloride 101 mmol/L (98-107); Estimated GFR 63.96 (mL/min/1.73m2); Glucose 193 mg/dL (74-106); Potassium 3.4 mmol/L (3.5-5.1); Sodium 139 mmol/L (136-145)
== END 2022-10-25 21:33 | disposition home or self-care (01) ==
LOC: NCHCN 21:32
PROVIDERS: PCP Nurse Practitioner Family; Visit Provider Registered Nurse
DX: E87.6 Hypokalemia (principal)
CPT/HCPCS: 80048

== ENCOUNTER 2022-11-14 15:18 | Outpatient (REF) | payer MEDICARE, MEDICAID, SELFPAY ==
[2022-11-14 16:00] LABS: Anion Gap 8.9 mmol/L (3-11); BUN 20 mg/dL (7-18); CO2 30.1 mmol/L (21.0-32.0); CREATININE 1.1 mg/dL (0.70-1.30); Calcium 9.5 mg/dL (8.5-10.1); Chloride 104 mmol/L (98-107); Estimated GFR 85.42 (mL/min/1.73m2); Glucose 141 mg/dL (74-106); Potassium 3.9 mmol/L (3.5-5.1); Sodium 143 mmol/L (136-145)
[2022-11-14 16:33] LABS: COMMENT (LAB VIEW ONLY) 58.02 mg/dL
[2022-11-14 16:43] LABS: Microalb ug/mg Crea 413.3 ug/mg Cr
== END 2022-11-14 15:19 | disposition home or self-care (01) ==
LOC: NCHCN 15:18
PROVIDERS: PCP Nurse Practitioner Family; Visit Provider Registered Nurse
DX: I10 Essential (primary) hypertension (principal); E11.8 Type 2 diabetes mellitus with unspecified complications
CPT/HCPCS: 80048; 82043; 82570

== ENCOUNTER 2023-07-17 20:48 | Outpatient (REF) | payer MEDICARE, MEDICAID, SELFPAY ==
[2023-07-17 21:17] LABS: Hemoglobin A1C 6.9 % (<5.7)
[2023-07-17 21:18] LABS: ALT 44 U/L (16-63); AST 33 U/L (15-37); Albumin 3.9 g/dL (3.4-5.0); Alkaline Phosphatase 54 U/L (46-116); Anion Gap 12.1 mmol/L (3-11); BUN 19 mg/dL (7-18); Bilirubin, Total 0.4 mg/dL (0.2-1.0); CO2 26.9 mmol/L (21.0-32.0); CREATININE 1.5 mg/dL (0.70-1.30); Calcium 10.3 mg/dL (8.5-10.1); Chloride 102 mmol/L (98-107); Estimated GFR 58.51 (mL/min/1.73m2); Glucose 156 mg/dL (74-106); Potassium 3.5 mmol/L (3.5-5.1); Sodium 141 mmol/L (136-145); Total Protein 8.1 g/dL (6.4-8.2)
[2023-07-17 21:58] LABS: Cholesterol 69 mg/dL (<200); HDL Cholesterol 37 mg/dL (40-60); Triglyceride 192 mg/dL (<150)
--- OUTSIDE RECORDS SUMMARY | 2023-07-18 13:31 | XMS_ITS | Continuity of Care Document ---
Author Name Unknown Organization [facility] Address [address] [place] [address] Care Team Providers Care Bus Attendant Name Role Phone Suzanne Fountain Primary Care Physician [phone] Encounter [facility] Date(s): 09/09/22 - 09/09/22 [facility] [address] [place] [address] Encounter Diagnosis Obstructive sleep apnea(Discharge Diagnosis) - 09/04/22 Insomnia(Discharge Diagnosis) - 09/04/22 Obstructive sleep apnea (adult) (pediatric)(Final) - Insomnia, unspecified(Final) - Discharge Disposition: Home or Self Care Attending Physician: Radha Andrew H[employer]TER [employer] DIVER Allergies, Adverse Reactions, Alerts Substance Reaction Severity Status lithium Unknown Active beta blockers Unknown Active QUEtiapine Unknown Active Assessment and Plan Future Appointments Functional Status 09/09/22 Other exposure to Infectious Disease Non e Immunizations Given and Recorded Vaccine Date Status Refusal Reason influenza virus vaccine, inactivated 05/22/10 Taye rded influenza virus vaccine, inactivated 04/18/08 Taye rded tetanus/diphth/pertuss (Tdap) adult/adol 09/24/07 Recorded Medications amLODIPine 10 mg oral tablet 10 mg = 1 tab, Oral, Daily, # 30 tab, 0 Refill(s) Start Date: 04/26/22 Status: Ordered atorvastatin 10 mg oral tablet 10 mg = 1 tab, Oral, Daily, # 30 tab, 0 Refill(s) Start Date: 04/26/22 Status: Ordered Breo Ellipta 100 mcg-25 mcg/inh inhalation powder 1 puffs, Inhale, Daily, # 30 EA, 0 Refill(s) Start Date: 04/26/22 Status: Ordered cloNIDine 0.1 mg oral tablet 0.1 mg = 1 tab, Oral, BID, # 180 tab, 0 Refill(s) Start Date: 04/26/22 Status: Ordered doxepin 10 mg oral capsule 10 mg = 1 cap, Oral, TID, # 90 cap, 0 Refill(s) Start Date: 04/26/22 Status: Ordered EpiPen 2-Noam 0 Refill(s) Start Date: 04/26/22 Status: Ordered gabapentin 300 mg oral capsule 300 mg = 1 cap, Oral, BID, # 60 cap, 0 Refill(s) Start Date: 04/26/22 Status: Ordered glipiZIDE 5 mg oral tablet 5 mg = 1 tab, Oral, Daily, # 30 tab, 0 Refill(s) Start Date: 04/26/22 Status: Ordered hydroCHLOROthiazide 12.5 mg oral capsule 12.5 mg = 1 cap, Oral, Daily, # 30 cap, 0 Refill(s) Start Date: 04/26/22 Status: Ordered hydroCHLOROthiazide 25 mg oral tablet 12.5 mg = 0.5 tab, Oral, BID, 0 Refill(s) Start Date: 04/26/22 Status: Ordered Jardiance 10 mg oral tablet 10 mg = 1 tab, Oral, every morning, # 30 tab, 0 Refill(s) Start Date: 04/26/22 Status: Ordered Jardiance 25 mg oral tablet 25 mg = 1 tab, Oral, every morning, # 30 tab, 0 Refill(s) Start Date: 04/26/22 Status: Ordered lisinopril 40 mg oral tablet 40 mg = 1 tab, Oral, Daily, # 30 tab, 0 Refill(s) Start Date: 04/26/22 Status: Ordered lisinopril-hydroCHLOROthiazide 20 mg-12.5 mg oral tablet 1 tab, Oral, Daily, # 30 tab, 0 Refill(s) Start Date: 04/26/22 Status: Ordered metFORMIN 500 mg oral tablet, extended release 500 mg = 1 tab, Oral, Daily, # 30 tab, 0 Refill(s) Start Date: 04/26/22 Status: Ordered omeprazole 0 Refill(s) Start Date: 04/26/22 Status: Ordered Potassium Chloride (Eqv-K-Tab) 10 mEq oral tablet, extended release 0 Refill(s) Start Date: 04/26/22 Status: Ordered ProAir HFA 90 mcg/inh inhalation aerosol 1 puffs, Inhale, Once, PRN as needed for wheezing, # 8.5 g, 0 Refill(s) Start Date: 04/26/22 Status: Ordered Ventolin HFA 90 mcg/inh inhalation aerosol 1 puffs, Inhale, every 4 hr, PRN as needed for wheezing, # 8 g, 0 Refill(s) Start Date: 04/26/22 Status: Ordered Problem List Condition Confirmation Course Effective Dates Status H ealth Status Informant Alcohol abuse Confirmed Active Bipolar 1 disorder Confirmed Active Blood in urine Confirmed Active Diabetes mellitus Confirmed Active Dysthymia Confirmed Active Gastroesophageal reflux disease Confirmed Active Hypertensive disorder Confirmed Active Insomnia Confirmed Active Obesity Confirmed Active Obstructive sleep apnea 1 Confirmed Active Toxic effect of venom Confirmed Active 1CPAP 12-20 cm [facility] Vital Signs Most recent to oldest [Reference Range]: 1 Peripheral Pulse Rate [60-100 bpm] 81 bp m (09/09/22 12:23 PM) Blood Pressure [90-140/60-90 mmHg] 148/8 6mmHg *HI* (09/09/22 12:23 PM) Weight 160.66 kg (09/09/22 12:23 PM) Weight Measured (lbs) 354.194 lb (09/09/22 12:23 PM) Height 182 cm (09/09/22 12:23 PM) Height/Length Measured (inches) 71.65 in ch (09/09/22 12:23 PM) BSA Measured 2.85 m2 (09/09/22 12:23 PM) Body Mass Index 48.5 kg/m2 (09/09/22 12:23 PM) Social History Social History Type Response Tobacco Former tobacco user Tobacco Use:. Sex Male Note * Marlin Mensah R: PERFORM Event Display: Progress Note - Specialties/Departments Authored Date: [id number] Progress note * Sam Sauceda M: PERFORM Event Display: Progress Note - Physician Authored Date: [id number] Physician Outpatient Note * Radha Andrew HUNTER [employer] DIVER: PERFORM Event Display: Office Clinic Note Physician Authored Date: [id number] RONAL REYNOLDS III :1980 Age:42 years Sex:Male Visit Date:09/09/2022 Primary Care Physician: Suzanne Fountain CADD INSTRUCTOR-C History of Present Illness Ronal Reynolds, III has a Zoom??visit for BETHANY and??insomnia follow-up. He has given consent to havea telehealth visit. Patient is at home, provider is in the office. ?? Ronal was last seen by me on 04/29/21. He has a history of HTN, obesity, alcohol abuse, cognitivedeficit, GERD, insomnia and BETHANY. ?? PSG 02/14/10 (BMI 48.9), AHI 17.6/hr, 02 la 78%, PLMi 1.2/hr. Titration 03/09/19 (BMI 61.88), sleep efficiency 59%, CPAP titrated from 12 to 14 cm, BiPAP at 15/11cm. Arousal index 9/hr, PLMi 0/hr, EKG NSR with PAC???s. Mean C02 39.6 mmHg. BiPAP 15/11 cm was successful in lateral and prone REM, no supine sleep seen during the study. Recommended BiPAP 20/5/4 cm. ?? Last visit he was using CPAP 12-20 cm with excellent compliance and reduction in AHI. The CPAP was malfunctioning so new CPAP ordered. He was not using doxepin because it made him too groggy the nextday. He was working on his erratic sleep schedule. ?? Ronal says that he has chronic headaches and they are very bad and they interfere with his sleep.He apparently is seeing his PCP about this and has had an MRI of his brain but hasn't gotten the results of this yet. It sounds like he has seen neurology as well. He says he is using his CPAP every night but he does not like the new FFM mask they sent him because the velcro comes undone and the hose pops off from the mask a lot at night. It also leaks??and wakes him up. He says he is cleaning it and changing the cushion. He is not sure what mask he had or which one he uses now, he did not bring it with him today. He sleeps from about 6 pm to 10 pm then is awake for 2-3 hours then goes back to sleep until 3-5 amand dozes again until 8 am. Overall he says he benefits from CPAP and does not think he could sleepwithout it. ?? ESS today 01/20 COMPLIANCE DATA REVIEWED WITH PATIENT: Dates 08/05/22-09/03/22,??Days used?? , average use??11 hours, 48 minutes,??median pressure 12.3??cm,??95 th percentile pressure??13.9 cm,??95 th percentile air leak 19 lpm, AHI 1/hr Physical Exam Vitals & Measurements HR:??81??(Peripheral)?? BP:??148/86?? SpO2:??97%?? HT:??182??cm?? WT:??160.66??kg?? BMI:??48.5?? BSA:??2.85?? N/A Assessment/Plan 1.??Obstructive sleep apnea??G47.33 BETHANY diagnosed in 2009 with an AHI of 17.6/hr. He has been using CPAP 12-20 cm, he has excellent compliance and reduction in AHI. Unfortunately he is very unhappy with the new FFM he was sent. It is unclear why this was changed on him. I asked [facility] to send him the mask he was previously had (he said it had hooks not magnets so I do not think it was one of the recalled masks). His headgear is currently being held together with tape. He benefits from CPAP??reporting he couldn't get any sleep without it??and continued use is recommended. He is advised to keep up with the routine maintenance of the machine and to clean/replace parts as needed. I will see him back in one year. He is asked to call our office for any sleep related questions or concerns. I provided greater than 30 minutes in the care of this patient, more than half the time was spent in [id number] counseling. 2.??Insomnia??G47.00 He has tried doxepin 10 mg QHS and it caused him to feel too groggy the next day. He is getting plenty of sleep but it does tend to be broken up into 1-2 chunks of time. I am not sure he is motivatedenough to try to correct this but it works for his lifestyle currently. Referral Orders Referral Management, Medical Service: Other, Reason: Please send him the mask he was previously using as he does NOT like the current one and he says it was changed on him. Kimberly, Start: 09/09/22 Problem List/Past Medical History Ongoing Alcohol abuse Bipolar 1 disorder Blood in urine Diabetes mellitus Dysthymia Gastroesophageal reflux disease Hypertensive disorder Insomnia Obesity Obstructive sleep apnea Toxic effect of venom Historical No qualifying data Medications amLODIPine 10 mg oral tablet, 10 mg= 1 tab, Oral, Daily atorvastatin 10 mg oral tablet, 10 mg= 1 tab, Oral, Daily Breo Ellipta 100 mcg-25 mcg/inh inhalation powder, 1 puffs, Inhale, Daily cloNIDine 0.1 mg oral tablet, 0.1 mg= 1 tab, Oral, BID doxepin 10 mg oral capsule, 10 mg= 1 cap, Oral, TID EpiPen 2-Noam gabapentin 300 mg oral capsule, 300 mg= 1 cap, Oral, BID glipiZIDE 5 mg oral tablet, 5 mg= 1 tab, Oral, Daily hydroCHLOROthiazide 12.5 mg oral capsule, 12.5 mg= 1 cap, Oral, Daily hydroCHLOROthiazide 25 mg oral tablet, 12.5 mg= 0.5 tab, Oral, BID Jardiance 10 mg oral tablet, 10 mg= 1 tab, Oral, every morning Jardiance 25 mg oral tablet, 25 mg= 1 tab, Oral, every morning lisinopril 40 mg oral tablet, 40 mg= 1 tab, Oral, Daily lisinopril-hydroCHLOROthiazide 20 mg-12.5 mg oral tablet, 1 tab, Oral, Daily metFORMIN 500 mg oral tablet, extended release, 500 mg= 1 tab, Oral, Daily omeprazole Potassium Chloride (Eqv-K-Tab) 10 mEq oral tablet, extended release ProAir HFA 90 mcg/inh inhalation aerosol, 1 puffs, Inhale, Once, PRN Ventolin HFA 90 mcg/inh inhalation aerosol, 1 puffs, Inhale, every 4 hr, PRN Allergies QUEtiapine beta blockers lithium Social History Electronic Cigarette/Vaping Electronic Cigarette Use: Never. Tobacco Former tobacco user Tobacco Use:. Immunizations Vaccine Date Status influenza virus vaccine, inactivated 05/22/2010 Recorded influenza virus vaccine, inactivated 04/18/2008 Recorded tetanus/diphth/pertuss (Tdap) adult/adol 09/24/2007 Recorded Electronically Signed on 09/09/22 12:57 PM Radha Andrew NP Patient Care team information Care Team Personnel Name: Александр Suzanneromero PARKER Position: No Access Member Role: Primary Care Physician Address: Address: [address] [address]- [place]
== END 2023-07-17 20:49 | disposition home or self-care (01) ==
LOC: NCHCN 20:48
PROVIDERS: PCP Nurse Practitioner Family; Visit Provider Family Medicine
DX: E11.8 Type 2 diabetes mellitus with unspecified complications (principal); I10 Essential (primary) hypertension
CPT/HCPCS: 80053; 80061; 83036

== ENCOUNTER 2024-03-17 17:54 | Outpatient (REF) | payer MEDICARE, MEDICAID, SELFPAY ==
[2024-03-17 21:44] LABS: Abs Immature Grans 0.04 10^3/uL (0.0-0.06); Absolute Basophil Count 0.05 10^3/uL (0.0-0.2); Absolute Eosinophil Count 0.19 10^3/uL (0.0-0.7); Absolute Lymphocyte Count 1.96 10^3/uL (1.2-3.4); Absolute Monocyte Count 0.51 10^3/uL (0.1-0.8); Basophils % 0.6 %; Eosinophils % 2.3 %; HGB 15.1 g/dL (13.5-17.5); Immature Grans % 0.5 %; Lymphocytes % 23.5 %; MCH 32.3 pg (27.0-33.0); MCHC 33.6 % (32.0-36.0); MCV 96 fL (80-95); Monocytes % 6.1 %; Platelet Count 240 10^3/uL (130-400); RBC 4.68 10^6/uL (4.36-5.78); RDW 13.9 % (11.8-14.1); RDW-SD 48.6 fL; WBC 8.35 10^3/uL (4.4-10.8)
[2024-03-17 21:53] LABS: ALT 48 U/L (16-63); AST 43 U/L (15-37); Albumin 3.8 g/dL (3.4-5.0); Alkaline Phosphatase 70 U/L (46-116); Anion Gap 9.8 mmol/L (3-11); BUN 25 mg/dL (7-18); Bilirubin, Total 0.35 mg/dL (0.2-1.0); CO2 26.2 mmol/L (21.0-32.0); CREATININE 1.8 mg/dL (0.70-1.30); Calcium 9.2 mg/dL (8.5-10.1); Chloride 102 mmol/L (98-107); Estimated GFR 46.72 (mL/min/1.73m2); Glucose 277 mg/dL (74-106); Potassium 4.2 mmol/L (3.5-5.1); Sodium 138 mmol/L (136-145); Total Protein 7.6 g/dL (6.4-8.2); Uric Acid 8.3 mg/dL (3.5-7.2)
== END 2024-03-17 17:55 | disposition home or self-care (01) ==
LOC: NCHCN 17:54
PROVIDERS: PCP Nurse Practitioner Family; Visit Provider Nurse Practitioner Family
DX: M79.671 Pain in right foot (principal)
CPT/HCPCS: 80053; 86141; 84550; 85025

== ENCOUNTER 2024-07-05 16:43 | Outpatient (REF) | payer MEDICARE, MEDICAID, SELFPAY ==
[2024-07-05 16:31] LABS: COMMENT (LAB VIEW ONLY) 68.12 mg/dL
[2024-07-05 16:45] LABS: Microalb ug/mg Crea 114.7 ug/mg Cr
== END 2024-07-05 16:44 | disposition home or self-care (01) ==
LOC: NCHCN 16:43
PROVIDERS: PCP Nurse Practitioner Family; Visit Provider Family Medicine
DX: E11.8 Type 2 diabetes mellitus with unspecified complications (principal)
CPT/HCPCS: 82043; 82570

== ENCOUNTER 2024-10-04 10:36 | Outpatient (REF) | payer MEDICARE, MEDICAID, SELFPAY ==
[2024-10-04 15:05] LABS: ALT 56 U/L (16-63); AST 35 U/L (15-37); Albumin 4.4 g/dL (3.4-5.0); Alkaline Phosphatase 88 U/L (46-116); BUN 23 mg/dL (7-18); Bilirubin, Total 0.5 mg/dL (0.2-1.0); CREATININE 1.7 mg/dL (0.70-1.30); Calcium 10.5 mg/dL (8.5-10.1); Chloride 100 mmol/L (98-107); Estimated GFR 50.04 (mL/min/1.73m2); Glucose 299 mg/dL (74-106); Potassium 4.9 mmol/L (3.5-5.1); Sodium 137 mmol/L (136-145)
== END 2024-10-04 10:37 | disposition home or self-care (01) ==
LOC: NCHCN 10:36
PROVIDERS: PCP Nurse Practitioner Family; Visit Provider Family Medicine
DX: N18.9 Chronic kidney disease, unspecified (principal)
CPT/HCPCS: 80053